=== PATIENT | male | born 1955 | race African-American/Black ===

== ENCOUNTER 2019-04-04 10:58 | Inpatient (IN) | payer MEDICARE, MEDICAID ==
[2019-04-04] VITALS (8 sets, daily range): BP systolic 121–170; BP diastolic 79–103
[~2019-04-04] VITALS: Ht 190.5 cm; Wt 97.1 kg
[2019-04-04] MEDS ORDERED: methylPREDNISolone SOD SUCC PF 125 MG/2 ML VIAL. IV ONE (11:15)
[2019-04-04] MEDS ORDERED: IPRATRPIUM/ALBUTEROL 0.5/2.5MG 3 ML NEBU. NEB ONE (11:15)
[2019-04-04 11:20] LABS: BASO % 0 % (0-3); EOS # 0.4 x10^3/uL (0.0-0.7); EOS % 4 % (0-3); HEMATOCRIT 48.4 % (39.0-53.0); HEMOGLOBIN 16.4 g/dL (13.0-17.5); LYMPH # 0.9 x10^3/uL (1.0-4.8); LYMPH % 10 % (24-48); MEAN CORPUSCULAR HEMOGLOBIN 31 pg (25-35); MEAN CORPUSCULAR HGB CONC 34 g/dL (31-37); MEAN CORPUSCULAR VOLUME 92 fL (79-100); MONO # 1.3 x10^3/uL (0.0-1.1); MONO % 14 % (0-9); NEUT # 6.7 x10^3uL (1.8-7.7); NEUT % 72 % (31-73); PLATELET COUNT 280 x10^3/uL (140-400); RED BLOOD COUNT 5.24 x10^6/uL (4.30-5.70); RED CELL DISTRIBUTION WIDTH 13.7 % (11.5-14.5); WHITE BLOOD COUNT 9.3 x10^3/uL (4.0-11.0)
[2019-04-04 11:22] LABS: BASE EXCESS COOX -1 mmol/L (-3-3); HCO3 COOX 26 mmol/L (21-28); METHEMOGLOBIN 0.1 % (0.0-1.9); OXYHEMOGLOBIN 97.8 %; PCO2 COOX 50 mmHg (35-46); PO2 COOX 218 mmHg (65-108); SAT O2 COOX 98 % (92-99)
--- NOTE | 2019-04-04 11:28 | PHYS DOC ---
Adult General Chief Complaint Chief Complaint: SHORTNESS OF BREATH HPI HPI 63-year-old male presenting by EMS with acute respiratory failure. He was placed on a nonrebreather by EMS and brought in in respiratory distress. This started approximately 24-48 hours ago. improved with nonrebreather. location lungs. duration constant. Past medical history hypertension hyperlipidemia. Denies COPD or heart failure. He denies cardiac disease. Surgical history: The patient denies any recent surgeries Social history denies smoking drinking or IV drug use. Review of systems is negative for abdominal pain nausea vomiting diaphoresis headache neck stiffness. All other review of systems is negative. All other review of systems is negative unless otherwise noted in history of present illness. ED course: 63-year-old male presenting the emergency department today with acute respiratory failure. On arrival he was placed on a nonrebreather and then we used assisted bag valve mask and transitioned him to a BiPAP machine. Patient was given nebulizer here in the emergency department. ABG obtained which showed normal PaO2 with mildly elevated PCO2. PH of 7.33. Bicarbonate 26. Patient's breathing improved with BiPAP. We'll give Solu-Medrol. Chest x-ray ordered along with blood work and a twelve-lead. Twelve-lead obtained and reviewed by myself shows sinus rhythm with a tachy rate. ST segments congruent. Not suggestive of ACS. Patient has improved on reexamination. We will admit the patient to the intensive care unit for acute respiratory failure. I spoke with Dr. Carranza who accepts patient for admission. Basic bridge orders placed. Critical care time spent was 42 minutes exclusive of procedures. Time was spent evaluating the patient, ordering the administration of medications, reevaluating the patient, discussing with the admitting provider and documenting. Review of Systems Review of Systems SEE ABOVE. Current Medications Current Medications Current Medications Medications (Trade) Dose Ordered Sig/Zohreh Start Time Stop Time Status Last Admin Dose Admin Albuterol Sulfate (Ventolin Neb Soln) 10 mg 1X ONCE 04/04/19 12:00 04/04/19 12:01 DC 04/04/19 12:05 10 MG Albuterol/ Ipratropium (Duoneb) 3 ml 1X ONCE 04/04/19 11:15 04/04/19 11:19 DC 04/04/19 11:39 3 ML Methylprednisolone Sodium Succinate (SOLU-Medrol 125MG VIAL) 125 mg 1X ONCE 04/04/19 11:15 04/04/19 11:19 DC 04/04/19 11:20 125 MG Allergies Allergies Allergies Coded Allergies Type Severity Reaction Last Updated Verified No Known Drug Allergies 04/04/19 No Physical Exam Physical Exam SEE ABOVE Constitutional: Patient is in respiratory distress initially, placed on BiPAP. Improved on reexamination. HENT: Normocephalic, atraumatic, bilateral external ears normal, oropharynx m oist, no oral exudates, nose normal. [] Eyes: PERRLA, EOMI, conjunctiva normal, no discharge. [] Neck: Normal range of motion, no tenderness, supple, no stridor. [] Cardiovascular:tachy rate with a regular rhythm, no murmur [] Lungs & Thorax: Bilateral wheezing present. Prolonged expiratory phase Abdomen: Bowel sounds normal, soft, no tenderness, no masses, no pulsatile masses. [] Skin: Warm, dry, no erythema, no rash. [] Back: No tenderness, no CVA tenderness. [] Extremities: No tenderness, no cyanosis, no clubbing, ROM intact, no edema. [] Neurologic: Alert and oriented X 3, normal motor function, normal sensory function, no focal deficits noted. [] Psychologic: Affect normal, judgement normal, mood normal. [] Current Patient Data Vital Signs Vital Signs Date Time Temp Pulse Resp B/P (MAP) Pulse Ox O2 Delivery O2 Flow Rate FiO2 04/04/19 12:32 108 24 137/92 (107) 99 BiPAP/CPAP 15.0 04/04/19 10:58 97.9 97.9 Lab Values Laboratory Tests Test 04/04/19 11:04 04/04/19 11:07 04/04/19 11:50 White Blood Count 9.3 x10^3/uL (4.0-11.0) Red Blood Count 5.24 x10^6/uL (4.30-5.70) Hemoglobin 16.4 g/dL (13.0-17.5) Hematocrit 48.4 % (39.0-53.0) Mean Corpuscular Volume 92 fL (79-100) Mean Corpuscular Hemoglobin 31 pg (25-35) Mean Corpuscular Hemoglobin Concent 34 g/dL (31-37) Red Cell Distribution Width 13.7 % (11.5-14.5) Platelet Count 280 x10^3/uL (140-400) Neutrophils (%) (Auto) 72 % (31-73) Lymphocytes (%) (Auto) 10 % (24-48) L Monocytes (%) (Auto) 14 % (0-9) H Eosinophils (%) (Auto) 4 % (0-3) H Basophils (%) (Auto) 0 % (0-3) Neutrophils # (Auto) 6.7 x10^3uL (1.8-7.7) Lymphocytes # (Auto) 0.9 x10^3/uL (1.0-4.8) L Monocytes # (Auto) 1.3 x10^3/uL (0.0-1.1) H Eosinophils # (Auto) 0.4 x10^3/uL (0.0-0.7) Basophils # (Auto) 0.0 x10^3/uL (0.0-0.2) O2 Saturation 98 % (92-99) Arterial Blood pH 7.34 (7.35-7.45) L Arterial Blood pCO2 at Patient Temp 50 mmHg (35-46) H Arterial Blood pO2 at Patient Temp 218 mmHg (65-108) H Arterial Blood HCO3 26 mmol/L (21-28) Arterial Blood Base Excess -1 mmol/L (-3-3) Oxyhemoglobin 97.8 % Methemoglobin 0.1 % (0.0-1.9) Carbon Monoxide, Quantitative 0.4 % (0.0-1.9) FiO2 50 Sodium Level 133 mmol/L (136-145) L Potassium Level 4.4 mmol/L (3.5-5.1) Chloride Level 92 mmol/L (98-107) L Carbon Dioxide Level 30 mmol/L (21-32) Anion Gap 11 (6-14) Blood Urea Nitrogen 18 mg/dL (8-26) Creatinine 1.5 mg/dL (0.7-1.3) H Estimated GFR (Cockcroft-Gault) 57.6 Glucose Level 103 mg/dL (70-99) H Lactic Acid Level 2.2 mmol/L (0.4-2.0) H Calcium Level 9.8 mg/dL (8.5-10.1) Total Bilirubin 0.8 mg/dL (0.2-1.0) Direct Bilirubin 0.2 mg/dL (0.0-0.2) Aspartate Amino Transferase (AST) 27 U/L (15-37) Alanine Aminotransferase (ALT) 25 U/L (16-63) Alkaline Phosphatase 187 U/L (46-116) H Troponin I Quantitative < 0.017 ng/mL (0.000-0.055) IQ-Hla-O-Type Natriuretic Peptide 135 pg/mL (0-124) H Total Protein 9.1 g/dL (6.4-8.2) H Albumin 4.5 g/dL (3.4-5.0) Lipase 69 U/L (73-393) L Laboratory Tests 04/04/19 11:04 Laboratory Tests 04/04/19 11:50 EKG EKG [] Radiology/Procedures Radiology/Procedures [] Course & Med Decision Making Course & Med Decision Making Pertinent Labs and Imaging studies reviewed. (See chart for details) [] Dragon Disclaimer Dragon Disclaimer This electronic medical record was generated, in whole or in part, using a voice recognition dictation system. Departure Departure Impression: Primary Impression: Respiratory failure Additional Impression: Wheezing Disposition: 09 ADMITTED INPATIENT Admitting Physician: Rhett Bailon Condition: STABLE Problem Qualifiers DEAN BLACKMAN MD April 04, 2019 11:27
--- NOTE | 2019-04-04 11:35 | RAD ---
Portable chest, 04/04/2019: HISTORY: Shortness of breath The heart size and pulmonary vascularity are normal. No pulmonary infiltrate is seen. There is no evidence of pleural fluid. IMPRESSION: No acute cardiopulmonary abnormality is detected. Electronically signed by: Hossein Hassan MD (04/04/2019 11:32 AM) [facility]
[2019-04-04] MEDS ORDERED: ALBUTEROL SULFATE 2.5 MG/3 ML NEBU. CONT NEB ONE (12:00)
--- NOTE | 2019-04-04 12:21 | EKG ---
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
[2019-04-04 12:33] LABS: CALCIUM 9.8 mg/dL (8.5-10.1); CREATININE 1.5 mg/dL (0.7-1.3); GFR 57.6; POTASSIUM 4.4 mmol/L (3.5-5.1)
[2019-04-04 12:37] LABS: ALBUMIN 4.5 g/dL (3.4-5.0); DIRECT BILIRUBIN 0.2 mg/dL (0.0-0.2); TOTAL BILIRUBIN 0.8 mg/dL (0.2-1.0); TOTAL PROTEIN 9.1 g/dL (6.4-8.2)
--- NOTE | 2019-04-04 12:57 | PDOC1 ---
History and Physical Date of Admission Date of Admission DATE: 04/04/19 TIME: 12:57 Identification/Chief Complaint Chief Complaint 63-year-old male presenting by EMS with acute respiratory failure. He was placed on a nonrebreather by EMS and brought in in respiratory distress. This started approximately 24-48 hours ago. improved with nonrebreather. location lungs. duration constant. Past medical history hypertension hyperlipidemia. Denies COPD or heart failure. He denies cardiac disease. Surgical history: The patient denies any recent surgeries Social history denies IV drug use. Review of systems is negative for abdominal pain nausea vomiting diaphoresis headache neck stiffness. All other review of systems is negative. seen in er , 63-year-old male presenting the emergency department today with acute respiratory failure. On arrival he was placed on a nonrebreather and then we used assisted bag valve mask and transitioned him to a BiPAP machine. Patient was given nebulizer here in the emergency department. ABG obtained which showed normal PaO2 with mildly elevated PCO2. PH of 7.33. Bicarbonate 26. Patient's breathing improved with BiPAP. ordered Solu-Medrol. Past Medical History Cardiovascular: Hyperlipidemia Pulmonary: COPD Rheumatologic: No pertinent hx Family History Family History: Alcohol Abuse, Hypertension Social History Smoke: 1 pack per day ALCOHOL: occassional Drugs: None Current Medications Current Medications Current Medications Albuterol/ Ipratropium (Duoneb) 3 ml 1X ONCE NEB Last administered on 04/04/19at 11:39; Start 04/04/19 at 11:15; Stop 04/04/19 at 11:19; Status DC Methylprednisolone Sodium Succinate (SOLU-Medrol 125MG VIAL) 125 mg 1X ONCE IV Last administered on 04/04/19at 11:20; Start 04/04/19 at 11:15; Stop 04/04/19 at 11:19; Status DC Albuterol Sulfate (Ventolin Neb Soln) 10 mg 1X ONCE CONT NEB Last administered on 04/04/19at 12:05; Start 04/04/19 at 12:00; Stop 04/04/19 at 12:01; Status DC Allergies Allergies: Coded Allergies: No Known Drug Allergies (Unverified , 04/04/19) ROS Review of System 14 pt ros otherwise neg General: YES: Fatigue Eyes: No Blurry vision, No Decreased vision, No Double vision, No Dry eyes, No Excessive tearing, No Eye Pain, No Itchy Eyes, No Loss of vision, No Photophobia, No Scotomata, No Uses contacts, No Uses glasses, No Other HEENT: No: Heacaches, Visual Changes, Hearing change, Nasal congestion, Nasal discharge, Oral lesions, Sinus pain, Sore Throat, Epistaxis, Sneezing, Snoring, Tinnitus, Vertigo, Vocal changes, Other Hematological and Lymphatic: No: Bleeding Problems, Blood Clots, Blood Transfusions, Brusing, Night Sweats, Pallor, Swollen Lymph Nodes, Other ENDOCRINE: No: Breast Changes, Galactorrhea, Hair Pattern Changes, Hot Flashes, Malaise/lethargy, Mood Swings, Palpitations, Polydipsia/polyuria, Skin Changes, Temperature Intolerance, Unexpected Weight Changes, Other Breast: No New/Changing Breast Lumps, No Nipple changes, No Nipple discharge, No Other Respiratory: YES: Cough, Shortness of breath, SOB with excertion, Sputum Changes Cardiovascular: No Chest Pain, No Palpitations, No Orthopnea, No Paroxysmal Noc. Dyspnea, No Edema, No Lt Headedness, No Other Gastrointestinal: No Nausea, No Vomiting, No Abdominal Pain, No Diarrhea, No Constipation, No Melena, No Hematochezia, No Other Musculoskeletal: Yes Gait Disturbance, Yes Muscular Weakness Skin: Yes Dry Skin Physical Exam Physical Exam Constitutional: Well developed, well nourished, mod acute distress, non-toxic appearance. [] HENT: Normocephalic, atraumatic, bilateral external ears normal, oropharynx moist, no oral exudates, nose normal. [] Eyes: PERRLA, EOMI, conjunctiva normal, no discharge. [] Neck: Normal range of motion, no tenderness, supple, no stridor. [] Cardiovascular:Heart rate regular rhythm, no murmur [] Lungs & Thorax: Bilateral breath sounds diminished, diffuse exp wheezes [] Abdomen: Bowel sounds normal, soft, no tenderness, no masses, no pulsatile masses. [] Skin: Warm, dry, no erythema, no rash. [] Back: No tenderness, no CVA tenderness. [] Extremities: No tenderness, no cyanosis, no clubbing, ROM intact, no edema. [] Neurologic: Alert and oriented X 3, normal motor function, normal sensory function, no focal deficits noted. [] Psychologic: Affect normal, judgement normal, mood normal. [] General: Cooperative, moderate distress HEENT: Atraumatic, PERRLA, EOMI Heart: RRR Breasts: Not examined Abdomen: Normal bowel sounds, Soft Rectal Exam: not examined, mass PELVIC: Examination not indicated Extremities: No cyanosis Neuro: Normal speech, Cranial nerves 3-12 NL Vitals Vitals Vital Signs Date Time Temp Pulse Resp B/P (MAP) Pulse Ox O2 Delivery O2 Flow Rate FiO2 04/04/19 12:53 99 BiPAP/CPAP 04/04/19 12:32 108 24 137/92 (107) 15.0 04/04/19 10:58 97.9 97.9 Labs Labs Laboratory Tests Test 04/04/19 11:04 04/04/19 11:07 04/04/19 11:50 White Blood Count 9.3 x10^3/uL (4.0-11.0) Red Blood Count 5.24 x10^6/uL (4.30-5.70) Hemoglobin 16.4 g/dL (13.0-17.5) Hematocrit 48.4 % (39.0-53.0) Mean Corpuscular Volume 92 fL (79-100) Mean Corpuscular Hemoglobin 31 pg (25-35) Mean Corpuscular Hemoglobin Concent 34 g/dL (31-37) Red Cell Distribution Width 13.7 % (11.5-14.5) Platelet Count 280 x10^3/uL (140-400) Neutrophils (%) (Auto) 72 % (31-73) Lymphocytes (%) (Auto) 10 % (24-48) Monocytes (%) (Auto) 14 % (0-9) Eosinophils (%) (Auto) 4 % (0-3) Basophils (%) (Auto) 0 % (0-3) Neutrophils # (Auto) 6.7 x10^3uL (1.8-7.7) Lymphocytes # (Auto) 0.9 x10^3/uL (1.0-4.8) Monocytes # (Auto) 1.3 x10^3/uL (0.0-1.1) Eosinophils # (Auto) 0.4 x10^3/uL (0.0-0.7) Basophils # (Auto) 0.0 x10^3/uL (0.0-0.2) O2 Saturation 98 % (92-99) Arterial Blood pH 7.34 (7.35-7.45) Arterial Blood pCO2 at Patient Temp 50 mmHg (35-46) Arterial Blood pO2 at Patient Temp 218 mmHg (65-108) Arterial Blood HCO3 26 mmol/L (21-28) Arterial Blood Base Excess -1 mmol/L (-3-3) Oxyhemoglobin 97.8 % Methemoglobin 0.1 % (0.0-1.9) Carbon Monoxide, Quantitative 0.4 % (0.0-1.9) FiO2 50 Sodium Level 133 mmol/L (136-145) Potassium Level 4.4 mmol/L (3.5-5.1) Chloride Level 92 mmol/L (98-107) Carbon Dioxide Level 30 mmol/L (21-32) Anion Gap 11 (6-14) Blood Urea Nitrogen 18 mg/dL (8-26) Creatinine 1.5 mg/dL (0.7-1.3) Estimated GFR (Cockcroft-Gault) 57.6 Glucose Level 103 mg/dL (70-99) Lactic Acid Level 2.2 mmol/L (0.4-2.0) Calcium Level 9.8 mg/dL (8.5-10.1) Total Bilirubin 0.8 mg/dL (0.2-1.0) Direct Bilirubin 0.2 mg/dL (0.0-0.2) Aspartate Amino Transf (AST/SGOT) 27 U/L (15-37) Alanine Aminotransferase (ALT/SGPT) 25 U/L (16-63) Alkaline Phosphatase 187 U/L (46-116) Troponin I Quantitative < 0.017 ng/mL (0.000-0.055) RK-Kxo-N-Type Natriuretic Peptide 135 pg/mL (0-124) Total Protein 9.1 g/dL (6.4-8.2) Albumin 4.5 g/dL (3.4-5.0) Lipase 69 U/L (73-393) Laboratory Tests Test 04/04/19 11:04 04/04/19 11:07 04/04/19 11:50 White Blood Count 9.3 x10^3/uL (4.0-11.0) Red Blood Count 5.24 x10^6/uL (4.30-5.70) Hemoglobin 16.4 g/dL (13.0-17.5) Hematocrit 48.4 % (39.0-53.0) Mean Corpuscular Volume 92 fL (79-100) Mean Corpuscular Hemoglobin 31 pg (25-35) Mean Corpuscular Hemoglobin Concent 34 g/dL (31-37) Red Cell Distribution Width 13.7 % (11.5-14.5) Platelet Count 280 x10^3/uL (140-400) Neutrophils (%) (Auto) 72 % (31-73) Lymphocytes (%) (Auto) 10 % (24-48) Monocytes (%) (Auto) 14 % (0-9) Eosinophils (%) (Auto) 4 % (0-3) Basophils (%) (Auto) 0 % (0-3) Neutrophils # (Auto) 6.7 x10^3uL (1.8-7.7) Lymphocytes # (Auto) 0.9 x10^3/uL (1.0-4.8) Monocytes # (Auto) 1.3 x10^3/uL (0.0-1.1) Eosinophils # (Auto) 0.4 x10^3/uL (0.0-0.7) Basophils # (Auto) 0.0 x10^3/uL (0.0-0.2) O2 Saturation 98 % (92-99) Arterial Blood pH 7.34 (7.35-7.45) Arterial Blood pCO2 at Patient Temp 50 mmHg (35-46) Arterial Blood pO2 at Patient Temp 218 mmHg (65-108) Arterial Blood HCO3 26 mmol/L (21-28) Arterial Blood Base Excess -1 mmol/L (-3-3) Oxyhemoglobin 97.8 % Methemoglobin 0.1 % (0.0-1.9) Carbon Monoxide, Quantitative 0.4 % (0.0-1.9) FiO2 50 Sodium Level 133 mmol/L (136-145) Potassium Level 4.4 mmol/L (3.5-5.1) Chloride Level 92 mmol/L (98-107) Carbon Dioxide Level 30 mmol/L (21-32) Anion Gap 11 (6-14) Blood Urea Nitrogen 18 mg/dL (8-26) Creatinine 1.5 mg/dL (0.7-1.3) Estimated GFR (Cockcroft-Gault) 57.6 Glucose Level 103 mg/dL (70-99) Lactic Acid Level 2.2 mmol/L (0.4-2.0) Calcium Level 9.8 mg/dL (8.5-10.1) Total Bilirubin 0.8 mg/dL (0.2-1.0) Direct Bilirubin 0.2 mg/dL (0.0-0.2) Aspartate Amino Transf (AST/SGOT) 27 U/L (15-37) Alanine Aminotransferase (ALT/SGPT) 25 U/L (16-63) Alkaline Phosphatase 187 U/L (46-116) Troponin I Quantitative < 0.017 ng/mL (0.000-0.055) XO-Muf-J-Type Natriuretic Peptide 135 pg/mL (0-124) Total Protein 9.1 g/dL (6.4-8.2) Albumin 4.5 g/dL (3.4-5.0) Lipase 69 U/L (73-393) Images Images REASON: soa PROCEDURE: CHEST AP ONLY Portable chest, 04/04/2019: HISTORY: Shortness of breath The heart size and pulmonary vascularity are normal. No pulmonary infiltrate is seen. There is no evidence of pleural fluid. IMPRESSION: No acute cardiopulmonary abnormality is detected. Electronically signed by: Hossein Hassan MD (04/04/2019 11:32 AM) [facility] DICTATED and SIGNED BY: HOSSEIN HASSAN MD DATE: 04/04/19 1132 VTE Prophylaxis Ordered VTE Prophylaxis Devices: Yes VTE Pharmacological Prophylaxi: Yes Assessment/Plan Assessment/Plan impression 1. acute resp failure 2. COPD EXAC, SEVERE 3. Tobacco abuse 4. hypercapnic resp failure plan icu bed o2 support bipap support iv steroid taper dvt prophylaxis gi prophylaxis pulm consult iv doxy 100mg bid 69 min cc time DALJIT RIVERA MD April 04, 2019 12:57
[2019-04-04] MEDS ORDERED: IV NORMAL SALINE 1000ML BAG 1,000 ML IV SCH (13:09)
[2019-04-04] MEDS ORDERED: ONDANSETRON PF 4 MG/2 ML VIAL. IV PRN (13:15)
[2019-04-04] MEDS ORDERED: CONTRAST GIVEN. MC PRN (13:30)
[2019-04-04] MEDS ORDERED: IOHEXOL 350 MG/ML 100 ML VIAL. IV ONE (13:30)
--- NOTE | 2019-04-04 14:30 | RAD ---
CTA OF THE CHEST WITH AND WITHOUT CONTRAST Clinical indications: Respiratory distress. Technique: Noncontrast axial localizer was performed. After IV infusion of 90 cc of Omnipaque 350, helical CT scanning of the chest was performed using the CT pulmonary embolism protocol. A coronal MIP reconstruction was generated. PQRS compliance Statement One or more of the following individualized dose reduction techniques were utilized for this study: 1. Automated exposure control 2. Adjustment of the mA and/or kV according to patient size 3. Use of iterative reconstruction technique Comparison: No previous chest CT available. Findings: The opacification of the pulmonary arteries is not optimal but no central pulmonary embolism is evident. Mediastinal and right hilar lymphadenopathy is evident. The largest lymph node is seen in the subcarinal region measuring 29 mm. Lymph nodes are seen in the precarinal and azygous and right paratracheal and aortopulmonary window regions. A right hilar lymph node is seen and measures 20 mm in size. No focal aneurysmal dilatation of the thoracic aorta is seen and no intimal flap or dissection is evident. The heart size is normal and no pericardial effusion is evident. Small hiatal hernia is evident. There is wall thickening of the esophagus which may be seen with gastroesophageal reflux. Bilateral peribronchial thickening is seen consistent with bronchitis. There is a mucous plug within the right upper lobe bronchus extending to the superior aspect. There is a mucous plug within the left lower lobe bronchus extending into the posterior basal segment. Groundglass lung infiltrates are seen bilaterally in a mosaic-type pattern which may be seen with distal airway inflammation or infection. No other dense lung consolidation or lung mass is seen. No pleural effusion or pneumothorax is evident. No adrenal mass is evident. No lytic process is seen. IMPRESSION: Bilateral bronchitis. Bilateral mucous plugs. Bilateral groundglass lung infiltrates in a mosaic pattern typically seen with distal airway inflammatory or infectious disease. Another consideration is aspiration pneumonitis with debris within the airway. There is a small hiatal hernia with wall thickening of the esophagus which may be secondary to gastroesophageal reflux/esophagitis. No pulmonary emboli. Mediastinal and right hilar lymphadenopathy is evident. This may be reactive in nature but recommend a follow-up chest CT with IV contrast in 3-4 months to ensure stability. Electronically signed by: David Alexander MD (04/04/2019 2:27 PM) [place] [id number]
[2019-04-04] MEDS ORDERED: NAPR-683 PO (15:28)
[2019-04-04] MEDS ORDERED: VORT10TA PO (15:28)
[2019-04-04] MEDS ORDERED: AMIT50TA PO (15:28)
[2019-04-04] MEDS ORDERED: ATOR20TA58 PO (15:30)
[2019-04-04] MEDS ORDERED: UMEC1DIS IH (15:30)
[2019-04-04] MEDS ORDERED: AMLO10TA8 PO (15:30)
--- NOTE | 2019-04-04 17:00 | PDOC ---
PULMONARY PROGRESS NOTES Vitals Vital Signs Date Time Temp Pulse Resp B/P (MAP) Pulse Ox O2 Delivery O2 Flow Rate FiO2 04/04/19 16:00 Nasal Cannula 3.0 04/04/19 16:00 110 22 146/100 (115) 99 04/04/19 15:00 98.3 98.3 Labs Laboratory Tests Test 04/04/19 11:04 04/04/19 11:07 04/04/19 11:50 04/04/19 15:00 White Blood Count 9.3 x10^3/uL (4.0-11.0) Red Blood Count 5.24 x10^6/uL (4.30-5.70) Hemoglobin 16.4 g/dL (13.0-17.5) Hematocrit 48.4 % (39.0-53.0) Mean Corpuscular Volume 92 fL (79-100) Mean Corpuscular Hemoglobin 31 pg (25-35) Mean Corpuscular Hemoglobin Concent 34 g/dL (31-37) Red Cell Distribution Width 13.7 % (11.5-14.5) Platelet Count 280 x10^3/uL (140-400) Neutrophils (%) (Auto) 72 % (31-73) Lymphocytes (%) (Auto) 10 % (24-48) Monocytes (%) (Auto) 14 % (0-9) Eosinophils (%) (Auto) 4 % (0-3) Basophils (%) (Auto) 0 % (0-3) Neutrophils # (Auto) 6.7 x10^3uL (1.8-7.7) Lymphocytes # (Auto) 0.9 x10^3/uL (1.0-4.8) Monocytes # (Auto) 1.3 x10^3/uL (0.0-1.1) Eosinophils # (Auto) 0.4 x10^3/uL (0.0-0.7) Basophils # (Auto) 0.0 x10^3/uL (0.0-0.2) O2 Saturation 98 % (92-99) Arterial Blood pH 7.34 (7.35-7.45) Arterial Blood pCO2 at Patient Temp 50 mmHg (35-46) Arterial Blood pO2 at Patient Temp 218 mmHg (65-108) Arterial Blood HCO3 26 mmol/L (21-28) Arterial Blood Base Excess -1 mmol/L (-3-3) Oxyhemoglobin 97.8 % Methemoglobin 0.1 % (0.0-1.9) Carbon Monoxide, Quantitative 0.4 % (0.0-1.9) FiO2 50 Sodium Level 133 mmol/L (136-145) Potassium Level 4.4 mmol/L (3.5-5.1) Chloride Level 92 mmol/L (98-107) Carbon Dioxide Level 30 mmol/L (21-32) Anion Gap 11 (6-14) Blood Urea Nitrogen 18 mg/dL (8-26) Creatinine 1.5 mg/dL (0.7-1.3) Estimated GFR (Cockcroft-Gault) 57.6 Glucose Level 103 mg/dL (70-99) Lactic Acid Level 2.2 mmol/L (0.4-2.0) 1.5 mmol/L (0.4-2.0) Calcium Level 9.8 mg/dL (8.5-10.1) Total Bilirubin 0.8 mg/dL (0.2-1.0) Direct Bilirubin 0.2 mg/dL (0.0-0.2) Aspartate Amino Transf (AST/SGOT) 27 U/L (15-37) Alanine Aminotransferase (ALT/SGPT) 25 U/L (16-63) Alkaline Phosphatase 187 U/L (46-116) Troponin I Quantitative < 0.017 ng/mL (0.000-0.055) AV-Bap-R-Type Natriuretic Peptide 135 pg/mL (0-124) Total Protein 9.1 g/dL (6.4-8.2) Albumin 4.5 g/dL (3.4-5.0) Lipase 69 U/L (73-393) Laboratory Tests Test 04/04/19 11:04 04/04/19 11:07 04/04/19 11:50 04/04/19 15:00 White Blood Count 9.3 x10^3/uL (4.0-11.0) Red Blood Count 5.24 x10^6/uL (4.30-5.70) Hemoglobin 16.4 g/dL (13.0-17.5) Hematocrit 48.4 % (39.0-53.0) Mean Corpuscular Volume 92 fL (79-100) Mean Corpuscular Hemoglobin 31 pg (25-35) Mean Corpuscular Hemoglobin Concent 34 g/dL (31-37) Red Cell Distribution Width 13.7 % (11.5-14.5) Platelet Count 280 x10^3/uL (140-400) Neutrophils (%) (Auto) 72 % (31-73) Lymphocytes (%) (Auto) 10 % (24-48) Monocytes (%) (Auto) 14 % (0-9) Eosinophils (%) (Auto) 4 % (0-3) Basophils (%) (Auto) 0 % (0-3) Neutrophils # (Auto) 6.7 x10^3uL (1.8-7.7) Lymphocytes # (Auto) 0.9 x10^3/uL (1.0-4.8) Monocytes # (Auto) 1.3 x10^3/uL (0.0-1.1) Eosinophils # (Auto) 0.4 x10^3/uL (0.0-0.7) Basophils # (Auto) 0.0 x10^3/uL (0.0-0.2) O2 Saturation 98 % (92-99) Arterial Blood pH 7.34 (7.35-7.45) Arterial Blood pCO2 at Patient Temp 50 mmHg (35-46) Arterial Blood pO2 at Patient Temp 218 mmHg (65-108) Arterial Blood HCO3 26 mmol/L (21-28) Arterial Blood Base Excess -1 mmol/L (-3-3) Oxyhemoglobin 97.8 % Methemoglobin 0.1 % (0.0-1.9) Carbon Monoxide, Quantitative 0.4 % (0.0-1.9) FiO2 50 Sodium Level 133 mmol/L (136-145) Potassium Level 4.4 mmol/L (3.5-5.1) Chloride Level 92 mmol/L (98-107) Carbon Dioxide Level 30 mmol/L (21-32) Anion Gap 11 (6-14) Blood Urea Nitrogen 18 mg/dL (8-26) Creatinine 1.5 mg/dL (0.7-1.3) Estimated GFR (Cockcroft-Gault) 57.6 Glucose Level 103 mg/dL (70-99) Lactic Acid Level 2.2 mmol/L (0.4-2.0) 1.5 mmol/L (0.4-2.0) Calcium Level 9.8 mg/dL (8.5-10.1) Total Bilirubin 0.8 mg/dL (0.2-1.0) Direct Bilirubin 0.2 mg/dL (0.0-0.2) Aspartate Amino Transf (AST/SGOT) 27 U/L (15-37) Alanine Aminotransferase (ALT/SGPT) 25 U/L (16-63) Alkaline Phosphatase 187 U/L (46-116) Troponin I Quantitative < 0.017 ng/mL (0.000-0.055) QN-Lfd-C-Type Natriuretic Peptide 135 pg/mL (0-124) Total Protein 9.1 g/dL (6.4-8.2) Albumin 4.5 g/dL (3.4-5.0) Lipase 69 U/L (73-393) Medications Active Scripts Medications Dose Route/Sig Max Daily Dose Days Date Category Amlodipine Besylate 10 Mg Tablet 10 Mg PO DAILY 04/04/19 Reported Atorvastatin Calcium 20 Mg Tablet 20 Mg PO HS 04/04/19 Reported Anoro Ellipta 62.5-25 Mcg Inh (Umeclidinium Brm/Vilanterol Tr) 1 Each Disk.w.dev 1 Each IH DAILY 04/04/19 Reported Naprosyn (Naproxen) 500 Mg Tablet 500 Mg PO BID 04/04/19 Reported Amitriptyline Hcl 50 Mg Tablet 50 Mg PO DAILY 04/04/19 Reported Trintellix (Vortioxetine) 10 Mg Tablet 10 Mg PO DAILY 04/04/19 Reported Impression . NOTE DICTATED AECOPD RESP FAILURE KELSEY CARRILLO MD April 04, 2019 17:00
[2019-04-04] MEDS: BUDESONIDE 0.5 MG/2 ML NEBU. NEB SCH (19:53)
[2019-04-04] MEDS: DOXYCYCLINE HYCLATE 100 MG in IV DEXTROSE 5% 100ML 100 ML IV SCH (21:02)
[2019-04-04] MEDS: guaiFENesin DM 600/30MG 1 TAB TAB.ER.12H PO PRN (21:02)
[2019-04-04] MEDS: methylPREDNISolone SOD SUCC PF 125 MG/2 ML VIAL. IV SCH (21:02)
[2019-04-05] VITALS (15 sets, daily range): BP systolic 120–156; BP diastolic 84–97
[2019-04-05 04:50] LABS: BASO % 0 % (0-3); EOS % 0 % (0-3); HEMATOCRIT 45.7 % (39.0-53.0); HEMOGLOBIN 15.1 g/dL (13.0-17.5); LYMPH # 1.3 x10^3/uL (1.0-4.8); LYMPH % 12 % (24-48); MEAN CORPUSCULAR HEMOGLOBIN 31 pg (25-35); MEAN CORPUSCULAR HGB CONC 33 g/dL (31-37); MEAN CORPUSCULAR VOLUME 93 fL (79-100); MONO # 1.2 x10^3/uL (0.0-1.1); MONO % 11 % (0-9); NEUT # 8.6 x10^3uL (1.8-7.7); NEUT % 77 % (31-73); PLATELET COUNT 275 x10^3/uL (140-400); RED CELL DISTRIBUTION WIDTH 13.8 % (11.5-14.5); WHITE BLOOD COUNT 11.1 x10^3/uL (4.0-11.0)
[2019-04-05 05:04] LABS: CALCIUM 9.2 mg/dL (8.5-10.1); CREATININE 1.7 mg/dL (0.7-1.3); GFR 49.8; POTASSIUM 3.8 mmol/L (3.5-5.1)
--- NOTE | 2019-04-05 05:54 | CONS ---
DATE OF CONSULTATION: 04/04/2019 ATTENDING PHYSICIAN: Rhett Carranza MD. REASON FOR CONSULTATION: The patient seen in pulmonary consultation at the request of Dr. Carranza for acute respiratory distress. HISTORY OF PRESENT ILLNESS: The patient is a 63-year-old with a history of coronary artery disease, sees Dr. Lyle, also has had some irregular heartbeat, hyperlipidemia, and underlying COPD, he continues to smoke. Presented by EMS with respiratory distress. He was on nonrebreather initially. Started approximately 24-48 hours ago, cough mostly nonproductive. He was admitted. He is in the Intensive Care Unit. I was asked to see him in consultation. He had a CT chest, which I reviewed. There are some ground-glass opacities. There is no evidence of pulmonary emboli. There is evidence of bilateral bronchitis and mucus plugging. There was mediastinal right hilar adenopathy. PAST MEDICAL HISTORY: Remarkable for irregular heartbeat, he sees Dr. Lyle; hyperlipidemia; coronary artery disease; COPD; tobacco dependence. PAST SURGICAL HISTORY: No recent major surgery. FAMILY HISTORY: Alcohol abuse, hypertension. SOCIAL HISTORY: He drinks occasionally, one pack of cigarettes a day, denies any illicit drug use. CURRENT MEDICATIONS: List was reviewed. REVIEW OF SYSTEMS: As indicated above, otherwise, a 10-point system was reviewed and negative. ALLERGIES: No known drug allergies. PHYSICAL EXAMINATION: GENERAL: The patient was in no respiratory distress. VITAL SIGNS: Stable. O2 saturation was greater than 92%, currently on 3 liters. HEENT: Eyes: The sclerae were nonicteric. NECK: Jugular venous distention was not elevated. No lymphadenopathy. CHEST: Full expansion. LUNGS: Coarse breath sounds, poor expiratory force. The patient coughed upon inspiration. There were bilateral wheezes and rales. CARDIOVASCULAR: Regular rate and rhythm with S1, S2, no S3. ABDOMEN: Soft, nontender, nondistended. EXTREMITIES: No clubbing, cyanosis or edema. NEUROLOGIC: The patient was awake, alert, following commands. A detailed neuro exam was not performed. LABORATORY DATA: Arterial blood gas revealed a pH of 7.34, PaCO2 of 50 and pO2 of 218. White count was normal. Hemoglobin and hematocrit were noted. Electrolytes were noted. Sodium was low. IMPRESSION: 1. Acute hypoxemic respiratory failure. 2. Acute exacerbation of chronic obstructive pulmonary disease. 3. Abnormal CT chest revealing ground glass opacities and reactive lymphadenopathy. 4. Possible Gram-negative pneumonia. 5. Tobacco dependence. 6. History of irregular heartbeat. PLAN: 1. Continue current support p.r.n. BiPAP. 2. IV steroids. 3. DVT and GI prophylaxis. 4. Doxycycline. 5. Steroids. 6. The patient instructed on the importance of discontinuing tobacco use. I do appreciate the privilege in sharing in the patient's care. KELSEY CARRILLO MD DR: MAHESH/jared JOB#: [id number] / [id number]
[2019-04-05] MEDS: methylPREDNISolone SOD SUCC PF 125 MG/2 ML VIAL. IV SCH ×3 (06:36→22:12)
[2019-04-05] MEDS: MORPHINE SULFATE 2 MG/ML VIAL. IV PRN ×2 (06:37→11:20)
[2019-04-05] MEDS: BUDESONIDE 0.5 MG/2 ML NEBU. NEB SCH ×2 (07:33→18:09)
[2019-04-05] MEDS: PANTOPRAZOLE 40 MG TABLET.DR. PO SCH (07:52)
[2019-04-05] MEDS: DOXYCYCLINE HYCLATE 100 MG in IV DEXTROSE 5% 100ML 100 ML IV SCH ×2 (09:01→22:08)
[2019-04-05] MEDS: guaiFENesin DM 600/30MG 1 TAB TAB.ER.12H PO PRN ×2 (09:03→18:58)
[2019-04-05] MEDS: LACTOBACILLUS RHAMNOSUS GG 1 CAPSULE. PO SCH ×2 (09:12→22:12)
--- NOTE | 2019-04-05 09:14 | PDOC ---
PULMONARY PROGRESS NOTES Subjective pt still severe soa and cough can not complete full sentences Vitals Vital Signs Date Time Temp Pulse Resp B/P (MAP) Pulse Ox O2 Delivery O2 Flow Rate FiO2 04/05/19 08:00 Nasal Cannula 3.0 04/05/19 08:00 98.2 98 20 156/95 (115) 98 98.2 ROS: No Nausea, No Abdominal Pain General: Alert Lungs: Wheezing, Crackles Cardiovascular: S1, S2 Abdomen: Soft Neuro Exam: Alert Extremities: No Edema Skin: Warm Labs Laboratory Tests Test 04/04/19 11:04 04/04/19 11:07 04/04/19 11:50 04/04/19 15:00 White Blood Count 9.3 x10^3/uL (4.0-11.0) Red Blood Count 5.24 x10^6/uL (4.30-5.70) Hemoglobin 16.4 g/dL (13.0-17.5) Hematocrit 48.4 % (39.0-53.0) Mean Corpuscular Volume 92 fL (79-100) Mean Corpuscular Hemoglobin 31 pg (25-35) Mean Corpuscular Hemoglobin Concent 34 g/dL (31-37) Red Cell Distribution Width 13.7 % (11.5-14.5) Platelet Count 280 x10^3/uL (140-400) Neutrophils (%) (Auto) 72 % (31-73) Lymphocytes (%) (Auto) 10 % (24-48) Monocytes (%) (Auto) 14 % (0-9) Eosinophils (%) (Auto) 4 % (0-3) Basophils (%) (Auto) 0 % (0-3) Neutrophils # (Auto) 6.7 x10^3uL (1.8-7.7) Lymphocytes # (Auto) 0.9 x10^3/uL (1.0-4.8) Monocytes # (Auto) 1.3 x10^3/uL (0.0-1.1) Eosinophils # (Auto) 0.4 x10^3/uL (0.0-0.7) Basophils # (Auto) 0.0 x10^3/uL (0.0-0.2) O2 Saturation 98 % (92-99) Arterial Blood pH 7.34 (7.35-7.45) Arterial Blood pCO2 at Patient Temp 50 mmHg (35-46) Arterial Blood pO2 at Patient Temp 218 mmHg (65-108) Arterial Blood HCO3 26 mmol/L (21-28) Arterial Blood Base Excess -1 mmol/L (-3-3) Oxyhemoglobin 97.8 % Methemoglobin 0.1 % (0.0-1.9) Carbon Monoxide, Quantitative 0.4 % (0.0-1.9) FiO2 50 Sodium Level 133 mmol/L (136-145) Potassium Level 4.4 mmol/L (3.5-5.1) Chloride Level 92 mmol/L (98-107) Carbon Dioxide Level 30 mmol/L (21-32) Anion Gap 11 (6-14) Blood Urea Nitrogen 18 mg/dL (8-26) Creatinine 1.5 mg/dL (0.7-1.3) Estimated GFR (Cockcroft-Gault) 57.6 Glucose Level 103 mg/dL (70-99) Lactic Acid Level 2.2 mmol/L (0.4-2.0) 1.5 mmol/L (0.4-2.0) Calcium Level 9.8 mg/dL (8.5-10.1) Total Bilirubin 0.8 mg/dL (0.2-1.0) Direct Bilirubin 0.2 mg/dL (0.0-0.2) Aspartate Amino Transf (AST/SGOT) 27 U/L (15-37) Alanine Aminotransferase (ALT/SGPT) 25 U/L (16-63) Alkaline Phosphatase 187 U/L (46-116) Troponin I Quantitative < 0.017 ng/mL (0.000-0.055) XC-Gfk-S-Type Natriuretic Peptide 135 pg/mL (0-124) Total Protein 9.1 g/dL (6.4-8.2) Albumin 4.5 g/dL (3.4-5.0) Lipase 69 U/L (73-393) Test 04/05/19 04:30 White Blood Count 11.1 x10^3/uL (4.0-11.0) Red Blood Count 4.90 x10^6/uL (4.30-5.70) Hemoglobin 15.1 g/dL (13.0-17.5) Hematocrit 45.7 % (39.0-53.0) Mean Corpuscular Volume 93 fL (79-100) Mean Corpuscular Hemoglobin 31 pg (25-35) Mean Corpuscular Hemoglobin Concent 33 g/dL (31-37) Red Cell Distribution Width 13.8 % (11.5-14.5) Platelet Count 275 x10^3/uL (140-400) Neutrophils (%) (Auto) 77 % (31-73) Lymphocytes (%) (Auto) 12 % (24-48) Monocytes (%) (Auto) 11 % (0-9) Eosinophils (%) (Auto) 0 % (0-3) Basophils (%) (Auto) 0 % (0-3) Neutrophils # (Auto) 8.6 x10^3uL (1.8-7.7) Lymphocytes # (Auto) 1.3 x10^3/uL (1.0-4.8) Monocytes # (Auto) 1.2 x10^3/uL (0.0-1.1) Eosinophils # (Auto) 0.0 x10^3/uL (0.0-0.7) Basophils # (Auto) 0.0 x10^3/uL (0.0-0.2) Sodium Level 134 mmol/L (136-145) Potassium Level 3.8 mmol/L (3.5-5.1) Chloride Level 95 mmol/L (98-107) Carbon Dioxide Level 26 mmol/L (21-32) Anion Gap 13 (6-14) Blood Urea Nitrogen 30 mg/dL (8-26) Creatinine 1.7 mg/dL (0.7-1.3) Estimated GFR (Cockcroft-Gault) 49.8 Glucose Level 127 mg/dL (70-99) Calcium Level 9.2 mg/dL (8.5-10.1) Laboratory Tests Test 04/04/19 11:04 04/04/19 11:07 04/04/19 11:50 04/04/19 15:00 White Blood Count 9.3 x10^3/uL (4.0-11.0) Red Blood Count 5.24 x10^6/uL (4.30-5.70) Hemoglobin 16.4 g/dL (13.0-17.5) Hematocrit 48.4 % (39.0-53.0) Mean Corpuscular Volume 92 fL (79-100) Mean Corpuscular Hemoglobin 31 pg (25-35) Mean Corpuscular Hemoglobin Concent 34 g/dL (31-37) Red Cell Distribution Width 13.7 % (11.5-14.5) Platelet Count 280 x10^3/uL (140-400) Neutrophils (%) (Auto) 72 % (31-73) Lymphocytes (%) (Auto) 10 % (24-48) Monocytes (%) (Auto) 14 % (0-9) Eosinophils (%) (Auto) 4 % (0-3) Basophils (%) (Auto) 0 % (0-3) Neutrophils # (Auto) 6.7 x10^3uL (1.8-7.7) Lymphocytes # (Auto) 0.9 x10^3/uL (1.0-4.8) Monocytes # (Auto) 1.3 x10^3/uL (0.0-1.1) Eosinophils # (Auto) 0.4 x10^3/uL (0.0-0.7) Basophils # (Auto) 0.0 x10^3/uL (0.0-0.2) O2 Saturation 98 % (92-99) Arterial Blood pH 7.34 (7.35-7.45) Arterial Blood pCO2 at Patient Temp 50 mmHg (35-46) Arterial Blood pO2 at Patient Temp 218 mmHg (65-108) Arterial Blood HCO3 26 mmol/L (21-28) Arterial Blood Base Excess -1 mmol/L (-3-3) Oxyhemoglobin 97.8 % Methemoglobin 0.1 % (0.0-1.9) Carbon Monoxide, Quantitative 0.4 % (0.0-1.9) FiO2 50 Sodium Level 133 mmol/L (136-145) Potassium Level 4.4 mmol/L (3.5-5.1) Chloride Level 92 mmol/L (98-107) Carbon Dioxide Level 30 mmol/L (21-32) Anion Gap 11 (6-14) Blood Urea Nitrogen 18 mg/dL (8-26) Creatinine 1.5 mg/dL (0.7-1.3) Estimated GFR (Cockcroft-Gault) 57.6 Glucose Level 103 mg/dL (70-99) Lactic Acid Level 2.2 mmol/L (0.4-2.0) 1.5 mmol/L (0.4-2.0) Calcium Level 9.8 mg/dL (8.5-10.1) Total Bilirubin 0.8 mg/dL (0.2-1.0) Direct Bilirubin 0.2 mg/dL (0.0-0.2) Aspartate Amino Transf (AST/SGOT) 27 U/L (15-37) Alanine Aminotransferase (ALT/SGPT) 25 U/L (16-63) Alkaline Phosphatase 187 U/L (46-116) Troponin I Quantitative < 0.017 ng/mL (0.000-0.055) XZ-Usr-O-Type Natriuretic Peptide 135 pg/mL (0-124) Total Protein 9.1 g/dL (6.4-8.2) Albumin 4.5 g/dL (3.4-5.0) Lipase 69 U/L (73-393) Test 04/05/19 04:30 White Blood Count 11.1 x10^3/uL (4.0-11.0) Red Blood Count 4.90 x10^6/uL (4.30-5.70) Hemoglobin 15.1 g/dL (13.0-17.5) Hematocrit 45.7 % (39.0-53.0) Mean Corpuscular Volume 93 fL (79-100) Mean Corpuscular Hemoglobin 31 pg (25-35) Mean Corpuscular Hemoglobin Concent 33 g/dL (31-37) Red Cell Distribution Width 13.8 % (11.5-14.5) Platelet Count 275 x10^3/uL (140-400) Neutrophils (%) (Auto) 77 % (31-73) Lymphocytes (%) (Auto) 12 % (24-48) Monocytes (%) (Auto) 11 % (0-9) Eosinophils (%) (Auto) 0 % (0-3) Basophils (%) (Auto) 0 % (0-3) Neutrophils # (Auto) 8.6 x10^3uL (1.8-7.7) Lymphocytes # (Auto) 1.3 x10^3/uL (1.0-4.8) Monocytes # (Auto) 1.2 x10^3/uL (0.0-1.1) Eosinophils # (Auto) 0.0 x10^3/uL (0.0-0.7) Basophils # (Auto) 0.0 x10^3/uL (0.0-0.2) Sodium Level 134 mmol/L (136-145) Potassium Level 3.8 mmol/L (3.5-5.1) Chloride Level 95 mmol/L (98-107) Carbon Dioxide Level 26 mmol/L (21-32) Anion Gap 13 (6-14) Blood Urea Nitrogen 30 mg/dL (8-26) Creatinine 1.7 mg/dL (0.7-1.3) Estimated GFR (Cockcroft-Gault) 49.8 Glucose Level 127 mg/dL (70-99) Calcium Level 9.2 mg/dL (8.5-10.1) Medications Active Scripts Medications Dose Route/Sig Max Daily Dose Days Date Category Amlodipine Besylate 10 Mg Tablet 10 Mg PO DAILY 04/04/19 Reported Atorvastatin Calcium 20 Mg Tablet 20 Mg PO HS 04/04/19 Reported Anoro Ellipta 62.5-25 Mcg Inh (Umeclidinium Brm/Vilanterol Tr) 1 Each Disk.w.dev 1 Each IH DAILY 04/04/19 Reported Naprosyn (Naproxen) 500 Mg Tablet 500 Mg PO BID 04/04/19 Reported Amitriptyline Hcl 50 Mg Tablet 50 Mg PO DAILY 04/04/19 Reported Trintellix (Vortioxetine) 10 Mg Tablet 10 Mg PO DAILY 04/04/19 Reported Impression . IMPRESSION: 1. Acute hypoxemic respiratory failure. 2. Acute exacerbation of chronic obstructive pulmonary disease. 3. Abnormal CT chest revealing ground glass opacities and reactive lymphadenopathy. 4. Possible Gram-negative pneumonia. 5. Tobacco dependence. 6. History of irregular heartbeat. 7. AECOPD Plan . SEE ORDERS TRANSFER FROM ICU ADD TESTALYAON NEBS PRN BIPAP DOXY D/C SMOKING 6 MW PRIOR TO D/C KELSEY CARRILLO MD April 05, 2019 09:14
[2019-04-05] MEDS ORDERED: LOSA1TAB22 PO (10:11)
[2019-04-05] MEDS ORDERED: CARV25TA2 PO (10:17)
[2019-04-05] MEDS ORDERED: ALBUTEROL SULFATE 2.5 MG/3 ML NEBU. NEB PRN (11:45)
[2019-04-05] MEDS ORDERED: ALBUTEROL SULFATE 2.5 MG/3 ML NEBU. NEB SCH (12:00)
[2019-04-05] MEDS ORDERED: BUDESONIDE 0.5 MG/2 ML NEBU. NEB SCH (12:00)
[2019-04-05] MEDS: LOSARTAN POTASSIUM 50 MG TABLET. PO SCH (12:08)
[2019-04-05] MEDS: hydroCHLOROthiazide 25 MG TABLET PO SCH (12:10)
[2019-04-05] MEDS: AMITRIPTYLINE HCL 25 MG TABLET. PO SCH ×2 (12:10→22:12)
[2019-04-05] MEDS: NAPROXEN 500 MG TABLET PO SCH ×2 (12:10→22:12)
[2019-04-05] MEDS: amLODIPine BESYLATE 10 MG TABLET PO SCH (12:11)
--- NOTE | 2019-04-05 12:29 | PDOC ---
[employer] PROGRESS NOTE Chief Complaint Chief Complaint Acute hypoxemic respiratory failure Acute exacerbation of chronic obstructive pulmonary disease Abnormal CT chest revealing ground glass opacities and reactive lymphadenopathy Possible Gram-negative pneumonia Tobacco abuse disorder History of Present Illness History of Present Illness Patient seen and examined in ICU Patient pleasant in NAD Discussed with nurse Vitals Vitals Vital Signs Date Time Temp Pulse Resp B/P (MAP) Pulse Ox O2 Delivery O2 Flow Rate FiO2 04/05/19 12:11 105 150/94 04/05/19 11:50 20 93 Nasal Cannula 2.0 04/05/19 08:00 98.2 98.2 Physical Exam General: Cooperative, moderate distress Lungs: Wheezing, Crackles Abdomen: Normal bowel sounds, Soft Extremities: No cyanosis Skin: No rashes, No significant lesion Labs LABS Laboratory Tests Test 04/04/19 15:00 04/05/19 04:30 Lactic Acid Level 1.5 mmol/L (0.4-2.0) White Blood Count 11.1 x10^3/uL (4.0-11.0) Red Blood Count 4.90 x10^6/uL (4.30-5.70) Hemoglobin 15.1 g/dL (13.0-17.5) Hematocrit 45.7 % (39.0-53.0) Mean Corpuscular Volume 93 fL (79-100) Mean Corpuscular Hemoglobin 31 pg (25-35) Mean Corpuscular Hemoglobin Concent 33 g/dL (31-37) Red Cell Distribution Width 13.8 % (11.5-14.5) Platelet Count 275 x10^3/uL (140-400) Neutrophils (%) (Auto) 77 % (31-73) Lymphocytes (%) (Auto) 12 % (24-48) Monocytes (%) (Auto) 11 % (0-9) Eosinophils (%) (Auto) 0 % (0-3) Basophils (%) (Auto) 0 % (0-3) Neutrophils # (Auto) 8.6 x10^3uL (1.8-7.7) Lymphocytes # (Auto) 1.3 x10^3/uL (1.0-4.8) Monocytes # (Auto) 1.2 x10^3/uL (0.0-1.1) Eosinophils # (Auto) 0.0 x10^3/uL (0.0-0.7) Basophils # (Auto) 0.0 x10^3/uL (0.0-0.2) Sodium Level 134 mmol/L (136-145) Potassium Level 3.8 mmol/L (3.5-5.1) Chloride Level 95 mmol/L (98-107) Carbon Dioxide Level 26 mmol/L (21-32) Anion Gap 13 (6-14) Blood Urea Nitrogen 30 mg/dL (8-26) Creatinine 1.7 mg/dL (0.7-1.3) Estimated GFR (Cockcroft-Gault) 49.8 Glucose Level 127 mg/dL (70-99) Calcium Level 9.2 mg/dL (8.5-10.1) Review of Systems Review of Systems Patient denies WO[place] Patient denies abdominal pain Assessment and Plan Assessmemt and Plan Problems Medical Problems: (1) Respiratory failure Status: Acute (2) Wheezing Status: Acute Assessment: Acute hypoxemic respiratory failure Acute exacerbation of chronic obstructive pulmonary disease Abnormal CT chest revealing ground glass opacities and reactive lymphadenopathy Possible Gram-negative pneumonia Tobacco abuse disorder Plan: ICU monitoring Antibiotics- Doxycycline IV steroids Duonebs Labs BIPAP prn DVT ppx PPI Pulmonology consulted- appreciate recommendations Comment Review of Relevant I have reviewed the following items mine (where applicable) has been applied. Labs Laboratory Tests Test 04/04/19 11:04 04/04/19 11:07 04/04/19 11:50 04/04/19 15:00 White Blood Count 9.3 x10^3/uL (4.0-11.0) Red Blood Count 5.24 x10^6/uL (4.30-5.70) Hemoglobin 16.4 g/dL (13.0-17.5) Hematocrit 48.4 % (39.0-53.0) Mean Corpuscular Volume 92 fL (79-100) Mean Corpuscular Hemoglobin 31 pg (25-35) Mean Corpuscular Hemoglobin Concent 34 g/dL (31-37) Red Cell Distribution Width 13.7 % (11.5-14.5) Platelet Count 280 x10^3/uL (140-400) Neutrophils (%) (Auto) 72 % (31-73) Lymphocytes (%) (Auto) 10 % (24-48) Monocytes (%) (Auto) 14 % (0-9) Eosinophils (%) (Auto) 4 % (0-3) Basophils (%) (Auto) 0 % (0-3) Neutrophils # (Auto) 6.7 x10^3uL (1.8-7.7) Lymphocytes # (Auto) 0.9 x10^3/uL (1.0-4.8) Monocytes # (Auto) 1.3 x10^3/uL (0.0-1.1) Eosinophils # (Auto) 0.4 x10^3/uL (0.0-0.7) Basophils # (Auto) 0.0 x10^3/uL (0.0-0.2) O2 Saturation 98 % (92-99) Arterial Blood pH 7.34 (7.35-7.45) Arterial Blood pCO2 at Patient Temp 50 mmHg (35-46) Arterial Blood pO2 at Patient Temp 218 mmHg (65-108) Arterial Blood HCO3 26 mmol/L (21-28) Arterial Blood Base Excess -1 mmol/L (-3-3) Oxyhemoglobin 97.8 % Methemoglobin 0.1 % (0.0-1.9) Carbon Monoxide, Quantitative 0.4 % (0.0-1.9) FiO2 50 Sodium Level 133 mmol/L (136-145) Potassium Level 4.4 mmol/L (3.5-5.1) Chloride Level 92 mmol/L (98-107) Carbon Dioxide Level 30 mmol/L (21-32) Anion Gap 11 (6-14) Blood Urea Nitrogen 18 mg/dL (8-26) Creatinine 1.5 mg/dL (0.7-1.3) Estimated GFR (Cockcroft-Gault) 57.6 Glucose Level 103 mg/dL (70-99) Lactic Acid Level 2.2 mmol/L (0.4-2.0) 1.5 mmol/L (0.4-2.0) Calcium Level 9.8 mg/dL (8.5-10.1) Total Bilirubin 0.8 mg/dL (0.2-1.0) Direct Bilirubin 0.2 mg/dL (0.0-0.2) Aspartate Amino Transf (AST/SGOT) 27 U/L (15-37) Alanine Aminotransferase (ALT/SGPT) 25 U/L (16-63) Alkaline Phosphatase 187 U/L (46-116) Troponin I Quantitative < 0.017 ng/mL (0.000-0.055) CU-Kyq-P-Type Natriuretic Peptide 135 pg/mL (0-124) Total Protein 9.1 g/dL (6.4-8.2) Albumin 4.5 g/dL (3.4-5.0) Lipase 69 U/L (73-393) Test 04/05/19 04:30 White Blood Count 11.1 x10^3/uL (4.0-11.0) Red Blood Count 4.90 x10^6/uL (4.30-5.70) Hemoglobin 15.1 g/dL (13.0-17.5) Hematocrit 45.7 % (39.0-53.0) Mean Corpuscular Volume 93 fL (79-100) Mean Corpuscular Hemoglobin 31 pg (25-35) Mean Corpuscular Hemoglobin Concent 33 g/dL (31-37) Red Cell Distribution Width 13.8 % (11.5-14.5) Platelet Count 275 x10^3/uL (140-400) Neutrophils (%) (Auto) 77 % (31-73) Lymphocytes (%) (Auto) 12 % (24-48) Monocytes (%) (Auto) 11 % (0-9) Eosinophils (%) (Auto) 0 % (0-3) Basophils (%) (Auto) 0 % (0-3) Neutrophils # (Auto) 8.6 x10^3uL (1.8-7.7) Lymphocytes # (Auto) 1.3 x10^3/uL (1.0-4.8) Monocytes # (Auto) 1.2 x10^3/uL (0.0-1.1) Eosinophils # (Auto) 0.0 x10^3/uL (0.0-0.7) Basophils # (Auto) 0.0 x10^3/uL (0.0-0.2) Sodium Level 134 mmol/L (136-145) Potassium Level 3.8 mmol/L (3.5-5.1) Chloride Level 95 mmol/L (98-107) Carbon Dioxide Level 26 mmol/L (21-32) Anion Gap 13 (6-14) Blood Urea Nitrogen 30 mg/dL (8-26) Creatinine 1.7 mg/dL (0.7-1.3) Estimated GFR (Cockcroft-Gault) 49.8 Glucose Level 127 mg/dL (70-99) Calcium Level 9.2 mg/dL (8.5-10.1) Laboratory Tests Test 04/04/19 15:00 04/05/19 04:30 Lactic Acid Level 1.5 mmol/L (0.4-2.0) White Blood Count 11.1 x10^3/uL (4.0-11.0) Red Blood Count 4.90 x10^6/uL (4.30-5.70) Hemoglobin 15.1 g/dL (13.0-17.5) Hematocrit 45.7 % (39.0-53.0) Mean Corpuscular Volume 93 fL (79-100) Mean Corpuscular Hemoglobin 31 pg (25-35) Mean Corpuscular Hemoglobin Concent 33 g/dL (31-37) Red Cell Distribution Width 13.8 % (11.5-14.5) Platelet Count 275 x10^3/uL (140-400) Neutrophils (%) (Auto) 77 % (31-73) Lymphocytes (%) (Auto) 12 % (24-48) Monocytes (%) (Auto) 11 % (0-9) Eosinophils (%) (Auto) 0 % (0-3) Basophils (%) (Auto) 0 % (0-3) Neutrophils # (Auto) 8.6 x10^3uL (1.8-7.7) Lymphocytes # (Auto) 1.3 x10^3/uL (1.0-4.8) Monocytes # (Auto) 1.2 x10^3/uL (0.0-1.1) Eosinophils # (Auto) 0.0 x10^3/uL (0.0-0.7) Basophils # (Auto) 0.0 x10^3/uL (0.0-0.2) Sodium Level 134 mmol/L (136-145) Potassium Level 3.8 mmol/L (3.5-5.1) Chloride Level 95 mmol/L (98-107) Carbon Dioxide Level 26 mmol/L (21-32) Anion Gap 13 (6-14) Blood Urea Nitrogen 30 mg/dL (8-26) Creatinine 1.7 mg/dL (0.7-1.3) Estimated GFR (Cockcroft-Gault) 49.8 Glucose Level 127 mg/dL (70-99) Calcium Level 9.2 mg/dL (8.5-10.1) Medications Current Medications Albuterol/ Ipratropium (Duoneb) 3 ml 1X ONCE NEB Last administered on 04/04/19at 11:39; Start 04/04/19 at 11:15; Stop 04/04/19 at 11:19; Status DC Methylprednisolone Sodium Succinate (SOLU-Medrol 125MG VIAL) 125 mg 1X ONCE IV Last administered on 04/04/19at 11:20; Start 04/04/19 at 11:15; Stop 04/04/19 at 11:19; Status DC Albuterol Sulfate (Ventolin Neb Soln) 10 mg 1X ONCE CONT NEB Last administered on 04/04/19at 12:05; Start 04/04/19 at 12:00; Stop 04/04/19 at 12:01; Status DC Ondansetron HCl (Zofran) 4 mg PRN Q8HRS PRN IV NAUSEA/VOMITING; Start 04/04/19 at 13:15; Stop 04/05/19 at 13:14 Morphine Sulfate (Morphine Sulfate) 2 mg PRN Q2HR PRN IV PAIN Last administered on 04/05/19at 11:20; Start 04/04/19 at 13:15; Stop 04/05/19 at 13:14 Sodium Chloride 1,000 ml @ 100 mls/hr Q10H IV Last administered on 04/04/19at 13:09; Start 04/04/19 at 13:09; Stop 04/04/19 at 19:08; Status DC Iohexol (Omnipaque 350 Mg/ml) 90 ml 1X ONCE IV Last administered on 04/04/19at 13:59; Start 04/04/19 at 13:30; Stop 04/04/19 at 13:31; Status DC Info (CONTRAST GIVEN -- Rx MONITORING) 1 each PRN DAILY PRN MC SEE COMMENTS; Start 04/04/19 at 13:30; Stop 04/06/19 at 13:29 Methylprednisolone Sodium Succinate (SOLU-Medrol 125MG VIAL) 125 mg Q8HRS IV Last administered on 04/05/19at 06:36; Start 04/04/19 at 22:00 Doxycycline Hyclate 100 mg/ Dextrose 100 ml @ 50 mls/hr Q12HR IV Last administered on 04/05/19 09:01; Start 04/04/19 at 21:00 Pantoprazole Sodium (Protonix) 40 mg DAILYAC PO Last administered on 04/05/19at 07:52; Start 04/05/19 at 07:30 Budesonide (Pulmicort) 0.5 mg RTBID NEB Last administered on 04/05/19at 07:33; Start 04/04/19 at 20:00 Guaifenesin (MUCINEX ER with DM) 1 tab PRN BID PRN PO COUGH Last administered on 04/05/19 09:03; Start 04/04/19 at 20:45 Lactobacillus Rhamnosus (Culturelle) 1 cap BID PO Last administered on 04/05/19at 09:12; Start 04/05/19 at 09:00 Amitriptyline HCl (Elavil) 50 mg BID PO Last administered on 04/05/19at 12:10; Start 04/05/19 at 12:00 Amlodipine Besylate (Norvasc) 10 mg DAILY PO Last administered on 04/05/19at 12:11; Start 04/05/19 at 12:00 Atorvastatin Calcium (Lipitor) 20 mg HS PO ; Start 04/05/19 at 21:00 Carvedilol (Coreg) 12.5 mg BIDWMEALS PO ; Start 04/05/19 at 17:00 Losartan Potassium (Cozaar) 100 mg DAILY PO Last administered on 04/05/19at 12:08; Start 04/05/19 at 12:00 Naproxen (Naprosyn) 500 mg BID PO Last administered on 04/05/19at 12:10; Start 04/05/19 at 12:00 Budesonide (Pulmicort) 0.5 mg RTBID NEB ; Start 04/05/19 at 12:00; Status UNV Non-Formulary Medication (Vortioxetine Hydrobromide (Trintellix)) 10 mg DAILY PO ; Start 04/06/19 at 09:00; Status UNV Albuterol Sulfate (Ventolin Neb Soln) 2.5 mg RTQID NEB Last administered on 04/05/19at 11:40; Start 04/05/19 at 12:00; Stop 04/05/19 at 12:00; Status DC Hydrochlorothiazide (Hydrodiuril) 25 mg DAILY PO Last administered on 04/05/19at 12:10; Start 04/05/19 at 12:00 Albuterol Sulfate (Ventolin Neb Soln) 2.5 mg PRN Q2HR PRN NEB [id number]; Start 04/05/19 at 11:45 Albuterol/ Ipratropium (Duoneb) 3 ml RTQID NEB ; Start 04/05/19 at 12:00 Benzonatate (Tessalon Perle) 100 mg [id number] PO ; Start 04/05/19 at 14:00 Enoxaparin Sodium (Lovenox 40mg Syringe) 40 mg Q24H SQ ; Start 04/05/19 at 16:00 Active Scripts Active Reported Carvedilol 25 Mg Tablet 12.5 Mg PO BIDWMEALS Losartan-Hctz 100-25 Mg Tab (Losartan/Hydrochlorothiazide) 1 Each Tablet 1 Tab PO DAILY Amlodipine Besylate 10 Mg Tablet 10 Mg PO DAILY Atorvastatin Calcium 20 Mg Tablet 20 Mg PO HS Anoro Ellipta 62.5-25 Mcg Inh (Umeclidinium Brm/Vilanterol Tr) 1 Each Disk.w.dev 1 Each IH DAILY Naprosyn (Naproxen) 500 Mg Tablet 500 Mg PO BID Amitriptyline Hcl 50 Mg Tablet 50 Mg PO BID Trintellix (Vortioxetine) 10 Mg Tablet 10 Mg PO DAILY Vitals/I & O Vital Sign - Last 24 Hours 04/04/19 04/04/19 04/04/19 04/04/19 12:32 12:53 13:02 13:02 Pulse 108 104 102 Resp 24 22 20 B/P (MAP) 137/92 (107) 135/94 (108) 135/94 (108) Pulse Ox 99 99 98 98 O2 Delivery BiPAP/CPAP BiPAP/CPAP Nasal Cannula BiPAP/CPAP O2 Flow Rate 15.0 3.0 04/04/19 04/04/19 04/04/19 04/04/19 14:13 15:00 16:00 16:00 Temp 98.3 98.3 Pulse 96 102 110 Resp 22 22 B/P (MAP) 138/80 (99) 121/94 (103) 146/100 (115) Pulse Ox 100 99 99 O2 Delivery Nasal Cannula Nasal Cannula Nasal Cannula Nasal Cannula O2 Flow Rate 3.0 3.0 3.0 3.0 04/04/19 04/04/19 04/04/19 04/04/19 17:00 17:02 19:00 19:50 Pulse 104 102 Resp B/P (MAP) 156/103 (120) 138/97 (111) Pulse Ox 99 100 99 96 O2 Delivery Nasal Cannula Nasal Cannula Nasal Cannula Nasal Cannula O2 Flow Rate 3.0 2.0 3.0 2.0 04/04/19 04/04/19 04/04/19 04/04/19 20:00 20:00 21:00 22:00 Temp 97.9 97.9 Pulse 100 115 114 Resp B/P (MAP) 155/95 (115) 170/100 (123) 153/90 (111) Pulse Ox 99 99 97 O2 Delivery Nasal Cannula Nasal Cannula Nasal Cannula Nasal Cannula O2 Flow Rate 3.0 3.0 3.0 3.0 04/04/19 04/05/19 04/05/19 04/05/19 23:00 00:01 00:01 01:05 Temp 98.5 98.5 Pulse 114 110 108 Resp B/P (MAP) 134/79 (97) 153/96 (115) 153/96 (115) Pulse Ox 97 94 93 O2 Delivery Nasal Cannula Nasal Cannula Nasal Cannula O2 Flow Rate 3.0 3.0 3.0 04/05/19 04/05/19 04/05/19 04/05/19 02:11 03:03 04:00 04:00 Pulse 124 108 103 Resp B/P (MAP) 152/96 (114) 147/97 (114) 151/90 (110) Pulse Ox 98 93 97 O2 Delivery Nasal Cannula Nasal Cannula Nasal Cannula O2 Flow Rate 3.0 3.0 3.0 04/05/19 04/05/19 04/05/19 04/05/19 06:05 06:08 06:37 07:00 Temp 97.2 97.2 Pulse 115 93 Resp B/P (MAP) 128/95 (106) 150/91 (110) Pulse Ox 95 94 O2 Delivery Nasal Cannula Nasal Cannula Nasal Cannula O2 Flow Rate 3.0 3.0 04/05/19 04/05/19 04/05/1919 07:34 08:00 08:00 09:00 Temp 98.2 98.2 Pulse 98 111 Resp 20 20 B/P (MAP) 156/95 (115) 132/94 (107) Pulse Ox 93 98 96 O2 Delivery Nasal Cannula Nasal Cannula Nasal Cannula Nasal Cannula O2 Flow Rate 2.0 3.0 3.0 3.0 04/05/19 04/05/19 04/05/19 04/05/19 10:00 11:00 11:20 11:41 Pulse 106 105 Resp 20 20 20 B/P (MAP) 149/94 (112) 150/94 (112) Pulse Ox 95 95 95 93 O2 Delivery Nasal Cannula Nasal Cannula Nasal Cannula Nasal Cannula O2 Flow Rate 3.0 3.0 3.0 2.0 04/05/19 04/05/19 04/05/19 11:50 12:08 12:11 Pulse 105 105 Resp 20 B/P (MAP) 150/94 150/94 Pulse Ox 93 O2 Delivery Nasal Cannula O2 Flow Rate 2.0 Intake and Output 0 04/04/19 04/04/19 04/05/19 14:59 22:59 06:59 Intake Total 305 ml 400 ml Output Total 400 ml 550 ml Balance -95 ml -150 ml NING DIAZ K III DO April 05, 2019 12:29
[2019-04-05] MEDS: BENZONATATE 100 MG CAPSULE. PO SCH ×2 (13:46→22:12)
--- NOTE | 2019-04-05 14:31 | NUR ---
Pt transferred to room 670 with all belongings. Transported to room 670 per w/c at 1415,report was called to receiving nurse Dylan.
[2019-04-05] MEDS: IPRATRPIUM/ALBUTEROL 0.5/2.5MG 3 ML NEBU. NEB SCH ×2 (15:22→18:09)
[2019-04-05] MEDS: ENOXAPARIN 40 MG/0.4 ML SYRINGE. SQ SCH (16:44)
[2019-04-05] MEDS: CARVEDILOL 12.5 MG TABLET. PO SCH (16:47)
[2019-04-05] MEDS: ATORVASTATIN CALCIUM 20 MG TABLET PO SCH (22:12)
[2019-04-06 03:29] VITALS: BP 125/87
[2019-04-06 04:31] LABS: BASO % 0 % (0-3); EOS % 0 % (0-3); HEMATOCRIT 45.1 % (39.0-53.0); HEMOGLOBIN 14.6 g/dL (13.0-17.5); LYMPH # 0.8 x10^3/uL (1.0-4.8); LYMPH % 6 % (24-48); MEAN CORPUSCULAR HEMOGLOBIN 30 pg (25-35); MEAN CORPUSCULAR HGB CONC 33 g/dL (31-37); MEAN CORPUSCULAR VOLUME 93 fL (79-100); MONO # 0.5 x10^3/uL (0.0-1.1); MONO % 3 % (0-9); NEUT # 13.1 x10^3uL (1.8-7.7); NEUT % 91 % (31-73); PLATELET COUNT 273 x10^3/uL (140-400); RED BLOOD COUNT 4.84 x10^6/uL (4.30-5.70); RED CELL DISTRIBUTION WIDTH 14.2 % (11.5-14.5); WHITE BLOOD COUNT 14.4 x10^3/uL (4.0-11.0)
[2019-04-06 05:20] LABS: CALCIUM 9.4 mg/dL (8.5-10.1); CREATININE 1.5 mg/dL (0.7-1.3); GFR 57.6
[2019-04-06] MEDS: methylPREDNISolone SOD SUCC PF 125 MG/2 ML VIAL. IV SCH ×3 (06:00→21:57)
[2019-04-06 07:00] VITALS: BP 139/97
[2019-04-06] MEDS: PANTOPRAZOLE 40 MG TABLET.DR. PO SCH (07:30)
[2019-04-06 07:31] LABS: % LYMPHS 5 % (24-48); % SEGS 95 % (35-66); PLT ESTIMATE ADEQUATE (ADEQUATE)
[2019-04-06] MEDS: IPRATRPIUM/ALBUTEROL 0.5/2.5MG 3 ML NEBU. NEB SCH ×4 (08:11→20:00)
[2019-04-06] MEDS: BUDESONIDE 0.5 MG/2 ML NEBU. NEB SCH ×2 (08:12→20:00)
[2019-04-06] MEDS ORDERED: NON FORMULARY ITEM (Vortioxetine Hydrobromide (Trintellix) 10 MG) PO SCH (09:00)
--- NOTE | 2019-04-06 09:21 | RAD ---
AP portable chest radiograph 04/06/2019 Clinical History: Shortness of breath. An AP erect portable digital radiograph of the chest was obtained. Comparison study is dated 04/04/2019. The cardiac silhouette is normal in size. The thoracic aorta is mildly tortuous. No acute pulmonary infiltrate is seen. No pleural effusion or pneumothorax is noted. The osseous structures are unchanged. Impression: No acute pulmonary infiltrate is seen. Electronically signed by: Eloy Kerns MD (04/06/2019 9:18 AM) [facility]
[2019-04-06] MEDS: CARVEDILOL 12.5 MG TABLET. PO SCH ×2 (09:50→17:32)
[2019-04-06] MEDS: DOXYCYCLINE HYCLATE 100 MG in IV DEXTROSE 5% 100ML 100 ML IV SCH ×2 (09:51→21:49)
[2019-04-06] MEDS: hydroCHLOROthiazide 25 MG TABLET PO SCH (09:52)
[2019-04-06] MEDS: NAPROXEN 500 MG TABLET PO SCH ×2 (09:52→21:55)
[2019-04-06] MEDS: AMITRIPTYLINE HCL 25 MG TABLET. PO SCH ×2 (09:52→21:49)
[2019-04-06] MEDS: LOSARTAN POTASSIUM 50 MG TABLET. PO SCH (09:53)
[2019-04-06] MEDS: LACTOBACILLUS RHAMNOSUS GG 1 CAPSULE. PO SCH ×2 (09:54→21:59)
[2019-04-06] MEDS: BENZONATATE 100 MG CAPSULE. PO SCH ×3 (09:55→21:57)
[2019-04-06] MEDS: amLODIPine BESYLATE 10 MG TABLET PO SCH (09:55)
--- NOTE | 2019-04-06 10:10 | NUR ---
Held medication hydrobromide (Trintellix) 10mg patient has no way of bringing it to the hospital, and currently doesn't have it on him.
[2019-04-06] MEDS ORDERED: HYDROcodone/APAP 5/325MG 1 TAB TABLET PO PRN (10:15)
[2019-04-06] MEDS ORDERED: ONDANSETRON PF 4 MG/2 ML VIAL. IV PRN (10:15)
[2019-04-06] MEDS ORDERED: MORPHINE SULFATE 2 MG/ML VIAL. IV PRN (10:15)
[2019-04-06 11:00] VITALS: BP 143/89
--- NOTE | 2019-04-06 11:06 | PDOC ---
PROGRESS NOTES Chief Complaint Chief Complaint Acute hypoxemic respiratory failure needing NIPPV (first time) Acute exacerbation of chronic obstructive pulmonary disease Abnormal CT chest revealing ground glass opacities and reactive lymphadenopathy Possible Gram-negative pneumonia Tobacco abuse disorder History of Present Illness History of Present Illness He was a transfer out of ICU 04/05/19 He needed the BiPAP for the first time this admission He is cutting back on smoking maybe 1 or 2 cigarettes a day now GNR PNA Still coughing after short sentences Walks around his room only and is in respiratory distress already Plan: 6 minute walk, BiPAP when necessary I don't think he needs rehabilitation, muscular strength is not the issue but he does get really tired fatigued and winded and SOA upon short distances Most likely will need O2 on dc Full code Smoking cessation done 1-1 less than 30 minutes Continue cardiac telemetry Robitussin when necessary Vitals Vitals Vital Signs Date Time Temp Pulse Resp B/P (MAP) Pulse Ox O2 Delivery O2 Flow Rate FiO2 04/06/19 09:55 83 139/97 04/06/19 08:13 95 Nasal Cannula 3.0 04/06/19 07:00 98.0 14 98.0 Physical Exam General: Cooperative, moderate distress Lungs: Wheezing, Crackles Abdomen: Normal bowel sounds, Soft Extremities: No cyanosis Skin: No rashes, No significant lesion Labs LABS Laboratory Tests Test 04/06/19 04:05 White Blood Count 14.4 x10^3/uL (4.0-11.0) Red Blood Count 4.84 x10^6/uL (4.30-5.70) Hemoglobin 14.6 g/dL (13.0-17.5) Hematocrit 45.1 % (39.0-53.0) Mean Corpuscular Volume 93 fL (79-100) Mean Corpuscular Hemoglobin 30 pg (25-35) Mean Corpuscular Hemoglobin Concent 33 g/dL (31-37) Red Cell Distribution Width 14.2 % (11.5-14.5) Platelet Count 273 x10^3/uL (140-400) Neutrophils (%) (Auto) 91 % (31-73) Lymphocytes (%) (Auto) 6 % (24-48) Monocytes (%) (Auto) 3 % (0-9) Eosinophils (%) (Auto) 0 % (0-3) Basophils (%) (Auto) 0 % (0-3) Neutrophils # (Auto) 13.1 x10^3uL (1.8-7.7) Lymphocytes # (Auto) 0.8 x10^3/uL (1.0-4.8) Monocytes # (Auto) 0.5 x10^3/uL (0.0-1.1) Eosinophils # (Auto) 0.0 x10^3/uL (0.0-0.7) Basophils # (Auto) 0.0 x10^3/uL (0.0-0.2) Segmented Neutrophils % 95 % (35-66) Lymphocytes % 5 % (24-48) Platelet Estimate Adequate (ADEQUATE) Sodium Level 136 mmol/L (136-145) Potassium Level 4.0 mmol/L (3.5-5.1) Chloride Level 99 mmol/L (98-107) Carbon Dioxide Level 26 mmol/L (21-32) Anion Gap 11 (6-14) Blood Urea Nitrogen 29 mg/dL (8-26) Creatinine 1.5 mg/dL (0.7-1.3) Estimated GFR (Cockcroft-Gault) 57.6 Glucose Level 170 mg/dL (70-99) Calcium Level 9.4 mg/dL (8.5-10.1) Review of Systems Review of Systems SOA, cough, easily tired fatigue after short distances Assessment and Plan Assessmemt and Plan Problems Medical Problems: (1) Respiratory failure Status: Acute (2) Wheezing Status: Acute Comment Review of Relevant I have reviewed the following items mine (where applicable) has been applied. Labs Laboratory Tests Test 04/04/19 11:07 04/04/19 11:50 04/04/19 15:00 04/05/19 04:30 O2 Saturation 98 % (92-99) Arterial Blood pH 7.34 (7.35-7.45) Arterial Blood pCO2 at Patient Temp 50 mmHg (35-46) Arterial Blood pO2 at Patient Temp 218 mmHg (65-108) Arterial Blood HCO3 26 mmol/L (21-28) Arterial Blood Base Excess -1 mmol/L (-3-3) Oxyhemoglobin 97.8 % Methemoglobin 0.1 % (0.0-1.9) Carbon Monoxide, Quantitative 0.4 % (0.0-1.9) FiO2 50 Sodium Level 133 mmol/L (136-145) 134 mmol/L (136-145) Potassium Level 4.4 mmol/L (3.5-5.1) 3.8 mmol/L (3.5-5.1) Chloride Level 92 mmol/L (98-107) 95 mmol/L (98-107) Carbon Dioxide Level 30 mmol/L (21-32) 26 mmol/L (21-32) Anion Gap 11 (6-14) 13 (6-14) Blood Urea Nitrogen 18 mg/dL (8-26) 30 mg/dL (8-26) Creatinine 1.5 mg/dL (0.7-1.3) 1.7 mg/dL (0.7-1.3) Estimated GFR (Cockcroft-Gault) 57.6 49.8 Glucose Level 103 mg/dL (70-99) 127 mg/dL (70-99) Lactic Acid Level 2.2 mmol/L (0.4-2.0) 1.5 mmol/L (0.4-2.0) Calcium Level 9.8 mg/dL (8.5-10.1) 9.2 mg/dL (8.5-10.1) Total Bilirubin 0.8 mg/dL (0.2-1.0) Direct Bilirubin 0.2 mg/dL (0.0-0.2) Aspartate Amino Transf (AST/SGOT) 27 U/L (15-37) Alanine Aminotransferase (ALT/SGPT) 25 U/L (16-63) Alkaline Phosphatase 187 U/L (46-116) Troponin I Quantitative < 0.017 ng/mL (0.000-0.055) FC-Oet-B-Type Natriuretic Peptide 135 pg/mL (0-124) Total Protein 9.1 g/dL (6.4-8.2) Albumin 4.5 g/dL (3.4-5.0) Lipase 69 U/L (73-393) White Blood Count 11.1 x10^3/uL (4.0-11.0) Red Blood Count 4.90 x10^6/uL (4.30-5.70) Hemoglobin 15.1 g/dL (13.0-17.5) Hematocrit 45.7 % (39.0-53.0) Mean Corpuscular Volume 93 fL (79-100) Mean Corpuscular Hemoglobin 31 pg (25-35) Mean Corpuscular Hemoglobin Concent 33 g/dL (31-37) Red Cell Distribution Width 13.8 % (11.5-14.5) Platelet Count 275 x10^3/uL (140-400) Neutrophils (%) (Auto) 77 % (31-73) Lymphocytes (%) (Auto) 12 % (24-48) Monocytes (%) (Auto) 11 % (0-9) Eosinophils (%) (Auto) 0 % (0-3) Basophils (%) (Auto) 0 % (0-3) Neutrophils # (Auto) 8.6 x10^3uL (1.8-7.7) Lymphocytes # (Auto) 1.3 x10^3/uL (1.0-4.8) Monocytes # (Auto) 1.2 x10^3/uL (0.0-1.1) Eosinophils # (Auto) 0.0 x10^3/uL (0.0-0.7) Basophils # (Auto) 0.0 x10^3/uL (0.0-0.2) Procalcitonin < 0.10 ng/mL (0.00-0.10) Test 04/06/19 04:05 White Blood Count 14.4 x10^3/uL (4.0-11.0) Red Blood Count 4.84 x10^6/uL (4.30-5.70) Hemoglobin 14.6 g/dL (13.0-17.5) Hematocrit 45.1 % (39.0-53.0) Mean Corpuscular Volume 93 fL (79-100) Mean Corpuscular Hemoglobin 30 pg (25-35) Mean Corpuscular Hemoglobin Concent 33 g/dL (31-37) Red Cell Distribution Width 14.2 % (11.5-14.5) Platelet Count 273 x10^3/uL (140-400) Neutrophils (%) (Auto) 91 % (31-73) Lymphocytes (%) (Auto) 6 % (24-48) Monocytes (%) (Auto) 3 % (0-9) Eosinophils (%) (Auto) 0 % (0-3) Basophils (%) (Auto) 0 % (0-3) Neutrophils # (Auto) 13.1 x10^3uL (1.8-7.7) Lymphocytes # (Auto) 0.8 x10^3/uL (1.0-4.8) Monocytes # (Auto) 0.5 x10^3/uL (0.0-1.1) Eosinophils # (Auto) 0.0 x10^3/uL (0.0-0.7) Basophils # (Auto) 0.0 x10^3/uL (0.0-0.2) Segmented Neutrophils % 95 % (35-66) Lymphocytes % 5 % (24-48) Platelet Estimate Adequate (ADEQUATE) Sodium Level 136 mmol/L (136-145) Potassium Level 4.0 mmol/L (3.5-5.1) Chloride Level 99 mmol/L (98-107) Carbon Dioxide Level 26 mmol/L (21-32) Anion Gap 11 (6-14) Blood Urea Nitrogen 29 mg/dL (8-26) Creatinine 1.5 mg/dL (0.7-1.3) Estimated GFR (Cockcroft-Gault) 57.6 Glucose Level 170 mg/dL (70-99) Calcium Level 9.4 mg/dL (8.5-10.1) Laboratory Tests Test 04/06/19 04:05 White Blood Count 14.4 x10^3/uL (4.0-11.0) Red Blood Count 4.84 x10^6/uL (4.30-5.70) Hemoglobin 14.6 g/dL (13.0-17.5) Hematocrit 45.1 % (39.0-53.0) Mean Corpuscular Volume 93 fL (79-100) Mean Corpuscular Hemoglobin 30 pg (25-35) Mean Corpuscular Hemoglobin Concent 33 g/dL (31-37) Red Cell Distribution Width 14.2 % (11.5-14.5) Platelet Count 273 x10^3/uL (140-400) Neutrophils (%) (Auto) 91 % (31-73) Lymphocytes (%) (Auto) 6 % (24-48) Monocytes (%) (Auto) 3 % (0-9) Eosinophils (%) (Auto) 0 % (0-3) Basophils (%) (Auto) 0 % (0-3) Neutrophils # (Auto) 13.1 x10^3uL (1.8-7.7) Lymphocytes # (Auto) 0.8 x10^3/uL (1.0-4.8) Monocytes # (Auto) 0.5 x10^3/uL (0.0-1.1) Eosinophils # (Auto) 0.0 x10^3/uL (0.0-0.7) Basophils # (Auto) 0.0 x10^3/uL (0.0-0.2) Segmented Neutrophils % 95 % (35-66) Lymphocytes % 5 % (24-48) Platelet Estimate Adequate (ADEQUATE) Sodium Level 136 mmol/L (136-145) Potassium Level 4.0 mmol/L (3.5-5.1) Chloride Level 99 mmol/L (98-107) Carbon Dioxide Level 26 mmol/L (21-32) Anion Gap 11 (6-14) Blood Urea Nitrogen 29 mg/dL (8-26) Creatinine 1.5 mg/dL (0.7-1.3) Estimated GFR (Cockcroft-Gault) 57.6 Glucose Level 170 mg/dL (70-99) Calcium Level 9.4 mg/dL (8.5-10.1) Medications Current Medications Albuterol/ Ipratropium (Duoneb) 3 ml 1X ONCE NEB Last administered on 04/04/19at 11:39; Start 04/04/19 at 11:15; Stop 04/04/19 at 11:19; Status DC Methylprednisolone Sodium Succinate (SOLU-Medrol 125MG VIAL) 125 mg 1X ONCE IV Last administered on 04/04/19at 11:20; Start 04/04/19 at 11:15; Stop 04/04/19 at 11:19; Status DC Albuterol Sulfate (Ventolin Neb Soln) 10 mg 1X ONCE CONT NEB Last administered on 04/04/19at 12:05; Start 04/04/19 at 12:00; Stop 04/04/19 at 12:01; Status DC Ondansetron HCl (Zofran) 4 mg PRN Q8HRS PRN IV NAUSEA/VOMITING; Start 04/04/19 at 13:15; Stop 04/05/19 at 13:14; Status DC Morphine Sulfate (Morphine Sulfate) 2 mg PRN Q2HR PRN IV PAIN Last administered on 04/05/19at 11:20; Start 04/04/19 at 13:15; Stop 04/05/19 at 13:14; Status DC Sodium Chloride 1,000 ml @ 100 mls/hr Q10H IV Last administered on 04/04/19 13:09; Start 04/04/19 at 13:09; Stop 04/04/19 at 19:08; Status DC Iohexol (Omnipaque 350 Mg/ml) 90 ml 1X ONCE IV Last administered on 04/04/19at 13:59; Start 04/04/19 at 13:30; Stop 04/04/19 at 13:31; Status DC Info (CONTRAST GIVEN -- Rx MONITORING) 1 each PRN DAILY PRN MC SEE COMMENTS; Start 04/04/19 at 13:30; Stop 04/06/19 at 13:29 Methylprednisolone Sodium Succinate (SOLU-Medrol 125MG VIAL) 125 mg Q8HRS IV Last administered on 04/06/19 06:00; Start 04/04/19 at 22:00 Doxycycline Hyclate 100 mg/ Dextrose 100 ml @ 50 mls/hr Q12HR IV Last administered on 04/06/19 09:51; Start 04/04/19 at 21:00 Pantoprazole Sodium (Protonix) 40 mg DAILYAC PO Last administered on 04/06/19 07:30; Start 04/05/19 at 07:30 Budesonide (Pulmicort) 0.5 mg RTBID NEB Last administered on 04/06/19 08:12; Start 04/04/19 at 20:00 Guaifenesin (MUCINEX ER with DM) 1 tab PRN BID PRN PO COUGH Last administered o n 04/05/19 18:58; Start 04/04/19 at 20:45 Lactobacillus Rhamnosus (Culturelle) 1 cap BID PO Last administered on 04/06/19 09:54; Start 04/05/19 at 09:00 Amitriptyline HCl (Elavil) 50 mg BID PO Last administered on 04/06/19 09:52; Start 04/05/19 at 12:00 Amlodipine Besylate (Norvasc) 10 mg DAILY PO Last administered on 04/06/19 09:55; Start 04/05/19 at 12:00 Atorvastatin Calcium (Lipitor) 20 mg HS PO Last administered on 5/11/19at 22:12; Start 04/05/19 at 21:00 Carvedilol (Coreg) 12.5 mg BIDWMEALS PO Last administered on 04/06/19at 09:50; Start 04/05/19 at 17:00 Losartan Potassium (Cozaar) 100 mg DAILY PO Last administered on 04/06/19 09:53; Start 04/05/19 at 12:00 Naproxen (Naprosyn) 500 mg BID PO Last administered on 04/06/19 09:52; Start 04/05/19 at 12:00 Budesonide (Pulmicort) 0.5 mg RTBID NEB ; Start 04/05/19 at 12:00; Status UNV Non-Formulary Medication (Vortioxetine Hydrobromide (Trintellix)) 10 mg DAILY PO ; Start 04/06/19 at 09:00; Status UNV Albuterol Sulfate (Ventolin Neb Soln) 2.5 mg RTQID NEB Last administered on 04/05/19at 11:40; Start 04/05/19 at 12:00; Stop 04/05/19 at 12:00; Status DC Hydrochlorothiazide (Hydrodiuril) 25 mg DAILY PO Last administered on 04/06/19 09:52; Start 04/05/19 at 12:00 Albuterol Sulfate (Ventolin Neb Soln) 2.5 mg PRN Q2HR PRN NEB DYSPNEA; Start 04/05/19 at 11:45 Albuterol/ Ipratropium (Duoneb) 3 ml RTQID NEB Last administered on 04/06/19at 08:11; Start 04/05/19 at 12:00 Benzonatate (Tessalon Perle) 100 mg [id number] PO Last administered on 04/06/19 09:55; Start 04/05/19 at 14:00 Enoxaparin Sodium (Lovenox 40mg Syringe) 40 mg Q24H SQ Last administered on 04/05/19at 16:44; Start 04/05/19 at 16:00 Morphine Sulfate (Morphine Sulfate) 2 mg PRN Q2HR PRN IV PAIN; Start 04/06/19 at 10:15 Ondansetron HCl (Zofran) 4 mg PRN Q6HRS PRN IV NAUSEA/VOMITING; Start 04/06/19 at 10:15 Acetaminophen/ Hydrocodone Bitart (Lortab 5/325) 1 tab PRN Q4HRS PRN PO PAIN; Start 04/06/19 at 10:15 Active Scripts Active Reported Carvedilol 25 Mg Tablet 12.5 Mg PO BIDWMEALS Losartan-Hctz 100-25 Mg Tab (Losartan/Hydrochlorothiazide) 1 Each Tablet 1 Tab PO DAILY Amlodipine Besylate 10 Mg Tablet 10 Mg PO DAILY Atorvastatin Calcium 20 Mg Tablet 20 Mg PO HS Anoro Ellipta 62.5-25 Mcg Inh (Umeclidinium Brm/Vilanterol Tr) 1 Each Disk.w.dev 1 Each IH DAILY Naprosyn (Naproxen) 500 Mg Tablet 500 Mg PO BID Amitriptyline Hcl 50 Mg Tablet 50 Mg PO BID Trintellix (Vortioxetine) 10 Mg Tablet 10 Mg PO DAILY Vitals/I & O Vital Sign - Last 24 Hours 04/05/19 04/05/19 04/05/19 04/05/19 11:20 11:41 11:50 12:08 Pulse 105 Resp 20 20 B/P (MAP) 150/94 Pulse Ox 95 93 93 O2 Delivery Nasal Cannula Nasal Cannula Nasal Cannula O2 Flow Rate 3.0 2.0 2.0 04/05/19 04/05/19 04/05/19 04/05/19 12:11 12:23 15:00 15:22 Temp 98.2 98.2 Pulse 105 106 112 Resp 20 20 B/P (MAP) 150/94 122/86 (98) 143/92 (109) Pulse Ox 98 96 98 O2 Delivery Nasal Cannula Nasal Cannula Nasal Cannula O2 Flow Rate 3.0 3.0 3.0 04/05/19 04/05/19 04/05/19 04/05/19 16:47 18:11 18:13 19:42 Temp 98.1 98.1 Pulse 112 107 Resp 18 B/P (MAP) 143/92 133/84 (100) Pulse Ox 96 O2 Delivery Room Air Room Air Nasal Cannula O2 Flow Rate 3.0 04/05/19 04/06/19 04/06/19 04/06/19 23:35 03:29 07:00 08:13 Temp 98.0 97.7 98.0 98.0 97.7 98.0 Pulse 101 89 83 Resp 18 16 14 B/P (MAP) 120/84 (96) 125/87 (100) 139/97 (111) Pulse Ox 93 96 96 95 O2 Delivery Nasal Cannula Nasal Cannula Nasal Cannula Nasal Cannula O2 Flow Rate 3.0 3.0 3.0 3.0 04/06/19 04/06/19 04/06/19 09:50 09:53 09:55 Pulse 83 83 83 B/P (MAP) 139/97 139/97 139/97 Intake and Output 04/05/19 04/05/19 04/06/19 15:00 23:00 07:00 Intake Total 360 ml 400 ml Output Total 550 ml 800 ml Balance -190 ml -400 ml BONY ANTUNEZ MD April 06, 2019 11:06
[2019-04-06] MEDS: guaiFENesin DM 200MG/20MG 10 ML SYRUP PO SCH ×3 (12:00→21:49)
[2019-04-06] MEDS: guaiFENesin DM 600/30MG 1 TAB TAB.ER.12H PO PRN (14:07)
--- NOTE | 2019-04-06 14:57 | PDOC ---
PULMONARY PROGRESS NOTES Subjective PT LESS SOA AND LESS COUGH OFF BIPAP Vitals Vital Signs Date Time Temp Pulse Resp B/P (MAP) Pulse Ox O2 Delivery O2 Flow Rate FiO2 04/06/19 11:38 95 Nasal Cannula 3.0 04/06/19 11:00 97.5 104 16 143/89 (107) 97.5 ROS: No Nausea, No Chest Pain, No Abdominal Pain, No Increase Cough General: Alert Lungs: Wheezing, Crackles Cardiovascular: S1, S2 Abdomen: Soft Neuro Exam: Alert Extremities: No Edema Skin: Warm Labs Laboratory Tests Test 04/04/19 15:00 04/05/19 04:30 04/06/19 04:05 Lactic Acid Level 1.5 mmol/L (0.4-2.0) White Blood Count 11.1 x10^3/uL (4.0-11.0) 14.4 x10^3/uL (4.0-11.0) Red Blood Count 4.90 x10^6/uL (4.30-5.70) 4.84 x10^6/uL (4.30-5.70) Hemoglobin 15.1 g/dL (13.0-17.5) 14.6 g/dL (13.0-17.5) Hematocrit 45.7 % (39.0-53.0) 45.1 % (39.0-53.0) Mean Corpuscular Volume 93 fL (79-100) 93 fL (79-100) Mean Corpuscular Hemoglobin 31 pg (25-35) 30 pg (25-35) Mean Corpuscular Hemoglobin Concent 33 g/dL (31-37) 33 g/dL (31-37) Red Cell Distribution Width 13.8 % (11.5-14.5) 14.2 % (11.5-14.5) Platelet Count 275 x10^3/uL (140-400) 273 x10^3/uL (140-400) Neutrophils (%) (Auto) 77 % (31-73) 91 % (31-73) Lymphocytes (%) (Auto) 12 % (24-48) 6 % (24-48) Monocytes (%) (Auto) 11 % (0-9) 3 % (0-9) Eosinophils (%) (Auto) 0 % (0-3) 0 % (0-3) Basophils (%) (Auto) 0 % (0-3) 0 % (0-3) Neutrophils # (Auto) 8.6 x10^3uL (1.8-7.7) 13.1 x10^3uL (1.8-7.7) Lymphocytes # (Auto) 1.3 x10^3/uL (1.0-4.8) 0.8 x10^3/uL (1.0-4.8) Monocytes # (Auto) 1.2 x10^3/uL (0.0-1.1) 0.5 x10^3/uL (0.0-1.1) Eosinophils # (Auto) 0.0 x10^3/uL (0.0-0.7) 0.0 x10^3/uL (0.0-0.7) Basophils # (Auto) 0.0 x10^3/uL (0.0-0.2) 0.0 x10^3/uL (0.0-0.2) Sodium Level 134 mmol/L (136-145) 136 mmol/L (136-145) Potassium Level 3.8 mmol/L (3.5-5.1) 4.0 mmol/L (3.5-5.1) Chloride Level 95 mmol/L (98-107) 99 mmol/L (98-107) Carbon Dioxide Level 26 mmol/L (21-32) 26 mmol/L (21-32) Anion Gap 13 (6-14) 11 (6-14) Blood Urea Nitrogen 30 mg/dL (8-26) 29 mg/dL (8-26) Creatinine 1.7 mg/dL (0.7-1.3) 1.5 mg/dL (0.7-1.3) Estimated GFR (Cockcroft-Gault) 49.8 57.6 Glucose Level 127 mg/dL (70-99) 170 mg/dL (70-99) Calcium Level 9.2 mg/dL (8.5-10.1) 9.4 mg/dL (8.5-10.1) Procalcitonin < 0.10 ng/mL (0.00-0.10) Segmented Neutrophils % 95 % (35-66) Lymphocytes % 5 % (24-48) Platelet Estimate Adequate (ADEQUATE) Laboratory Tests Test 04/06/19 04:05 White Blood Count 14.4 x10^3/uL (4.0-11.0) Red Blood Count 4.84 x10^6/uL (4.30-5.70) Hemoglobin 14.6 g/dL (13.0-17.5) Hematocrit 45.1 % (39.0-53.0) Mean Corpuscular Volume 93 fL (79-100) Mean Corpuscular Hemoglobin 30 pg (25-35) Mean Corpuscular Hemoglobin Concent 33 g/dL (31-37) Red Cell Distribution Width 14.2 % (11.5-14.5) Platelet Count 273 x10^3/uL (140-400) Neutrophils (%) (Auto) 91 % (31-73) Lymphocytes (%) (Auto) 6 % (24-48) Monocytes (%) (Auto) 3 % (0-9) Eosinophils (%) (Auto) 0 % (0-3) Basophils (%) (Auto) 0 % (0-3) Neutrophils # (Auto) 13.1 x10^3uL (1.8-7.7) Lymphocytes # (Auto) 0.8 x10^3/uL (1.0-4.8) Monocytes # (Auto) 0.5 x10^3/uL (0.0-1.1) Eosinophils # (Auto) 0.0 x10^3/uL (0.0-0.7) Basophils # (Auto) 0.0 x10^3/uL (0.0-0.2) Segmented Neutrophils % 95 % (35-66) Lymphocytes % 5 % (24-48) Platelet Estimate Adequate (ADEQUATE) Sodium Level 136 mmol/L (136-145) Potassium Level 4.0 mmol/L (3.5-5.1) Chloride Level 99 mmol/L (98-107) Carbon Dioxide Level 26 mmol/L (21-32) Anion Gap 11 (6-14) Blood Urea Nitrogen 29 mg/dL (8-26) Creatinine 1.5 mg/dL (0.7-1.3) Estimated GFR (Cockcroft-Gault) 57.6 Glucose Level 170 mg/dL (70-99) Calcium Level 9.4 mg/dL (8.5-10.1) Medications Active Scripts Medications Dose Route/Sig Max Daily Dose Days Date Category Amlodipine Besylate 10 Mg Tablet 10 Mg PO DAILY 04/04/19 Reported Atorvastatin Calcium 20 Mg Tablet 20 Mg PO HS 04/04/19 Reported Anoro Ellipta 62.5-25 Mcg Inh (Umeclidinium Brm/Vilanterol Tr) 1 Each Disk.w.dev 1 Each IH DAILY 04/04/19 Reported Naprosyn (Naproxen) 500 Mg Tablet 500 Mg PO BID 04/04/19 Reported Amitriptyline Hcl 50 Mg Tablet 50 Mg PO DAILY 04/04/19 Reported Trintellix (Vortioxetine) 10 Mg Tablet 10 Mg PO DAILY 04/04/19 Reported Impression . IMPRESSION: 1. Acute hypoxemic respiratory failure. 2. Acute exacerbation of chronic obstructive pulmonary disease. 3. Abnormal CT chest revealing ground glass opacities and reactive lymphadenopathy. 4. Possible Gram-negative pneumonia. 5. Tobacco dependence. 6. History of irregular heartbeat. 7. AECOPD 8. ADENOPATHY Plan . IF CONTINUES TO IMPRVE D/C 04/07 FOLLOW UP IN OFFICE TAPER PRED AND DOXY 6 MIN W REPEAT CT IN 2-3 MONTHS ADD TESSALON NEBS PRN BIPAP DOXY D/C SMOKING KELSEY CARRILLO MD April 06, 2019 14:57
[2019-04-06 15:00] VITALS: BP 143/88
[2019-04-06] MEDS: ENOXAPARIN 40 MG/0.4 ML SYRINGE. SQ SCH (17:31)
[2019-04-06 19:33] VITALS: BP 127/89
[2019-04-06] MEDS: ATORVASTATIN CALCIUM 20 MG TABLET PO SCH (21:56)
[2019-04-06 23:23] VITALS: BP 132/90
[2019-04-06 23:23] LABS: BILIRUBIN,URINE NEGATIVE (NEG); CLARITY,URINE CLEAR; COLOR,URINE YELLOW; NITRITE,URINE NEGATIVE (NEG); PROTEIN,URINE NEGATIVE (NEG-TRACE); UROBILINOGEN,URINE 0.2 mg/dL (0.2 mg/dL)
[2019-04-06 23:31] LABS: BACTERIA,URINE 0 /HPF (0-FEW); RBC,URINE 0 /HPF (0-2); SQUAMOUS EPITHELIAL CELL,UR MOD /LPF; WBC,URINE OCC /HPF (0-4)
[2019-04-07 03:46] VITALS: BP 123/72
[2019-04-07] MEDS: methylPREDNISolone SOD SUCC PF 125 MG/2 ML VIAL. IV SCH ×3 (05:28→21:58)
[2019-04-07] MEDS: IPRATRPIUM/ALBUTEROL 0.5/2.5MG 3 ML NEBU. NEB SCH ×4 (06:16→19:30)
[2019-04-07] MEDS: BUDESONIDE 0.5 MG/2 ML NEBU. NEB SCH ×2 (06:17→19:30)
[2019-04-07 07:25] VITALS: BP 133/88
[2019-04-07] MEDS: LACTOBACILLUS RHAMNOSUS GG 1 CAPSULE. PO SCH ×2 (08:10→22:08)
[2019-04-07] MEDS: BENZONATATE 100 MG CAPSULE. PO SCH ×3 (08:10→22:07)
[2019-04-07] MEDS: hydroCHLOROthiazide 25 MG TABLET PO SCH (08:11)
[2019-04-07] MEDS: LOSARTAN POTASSIUM 50 MG TABLET. PO SCH (08:11)
[2019-04-07] MEDS: CARVEDILOL 12.5 MG TABLET. PO SCH ×2 (08:11→17:47)
[2019-04-07] MEDS: amLODIPine BESYLATE 10 MG TABLET PO SCH (08:11)
[2019-04-07] MEDS: AMITRIPTYLINE HCL 25 MG TABLET. PO SCH ×2 (08:12→22:07)
[2019-04-07] MEDS: guaiFENesin DM 200MG/20MG 10 ML SYRUP PO SCH ×4 (08:12→21:58)
[2019-04-07] MEDS: PANTOPRAZOLE 40 MG TABLET.DR. PO SCH (08:12)
[2019-04-07] MEDS: DOXYCYCLINE HYCLATE 100 MG in IV DEXTROSE 5% 100ML 100 ML IV SCH ×2 (08:13→22:08)
[2019-04-07] MEDS: NAPROXEN 500 MG TABLET PO SCH ×2 (08:22→22:07)
--- NOTE | 2019-04-07 08:40 | PDOC ---
PULMONARY PROGRESS NOTES Subjective PT LESS SOA AND LESS COUGH OFF BIPAP Vitals Vital Signs Date Time Temp Pulse Resp B/P (MAP) Pulse Ox O2 Delivery O2 Flow Rate FiO2 04/07/19 08:11 81 133/88 04/07/19 07:25 97.5 17 97 Nasal Cannula 3.0 97.5 ROS: No Nausea, No Chest Pain, No Abdominal Pain, No Increase Cough General: Alert Lungs: Wheezing, Crackles Cardiovascular: S1, S2 Abdomen: Soft Neuro Exam: Alert Extremities: No Edema Skin: Warm Labs Laboratory Tests Test 04/06/19 04:05 White Blood Count 14.4 x10^3/uL (4.0-11.0) Red Blood Count 4.84 x10^6/uL (4.30-5.70) Hemoglobin 14.6 g/dL (13.0-17.5) Hematocrit 45.1 % (39.0-53.0) Mean Corpuscular Volume 93 fL (79-100) Mean Corpuscular Hemoglobin 30 pg (25-35) Mean Corpuscular Hemoglobin Concent 33 g/dL (31-37) Red Cell Distribution Width 14.2 % (11.5-14.5) Platelet Count 273 x10^3/uL (140-400) Neutrophils (%) (Auto) 91 % (31-73) Lymphocytes (%) (Auto) 6 % (24-48) Monocytes (%) (Auto) 3 % (0-9) Eosinophils (%) (Auto) 0 % (0-3) Basophils (%) (Auto) 0 % (0-3) Neutrophils # (Auto) 13.1 x10^3uL (1.8-7.7) Lymphocytes # (Auto) 0.8 x10^3/uL (1.0-4.8) Monocytes # (Auto) 0.5 x10^3/uL (0.0-1.1) Eosinophils # (Auto) 0.0 x10^3/uL (0.0-0.7) Basophils # (Auto) 0.0 x10^3/uL (0.0-0.2) Segmented Neutrophils % 95 % (35-66) Lymphocytes % 5 % (24-48) Platelet Estimate Adequate (ADEQUATE) Sodium Level 136 mmol/L (136-145) Potassium Level 4.0 mmol/L (3.5-5.1) Chloride Level 99 mmol/L (98-107) Carbon Dioxide Level 26 mmol/L (21-32) Anion Gap 11 (6-14) Blood Urea Nitrogen 29 mg/dL (8-26) Creatinine 1.5 mg/dL (0.7-1.3) Estimated GFR (Cockcroft-Gault) 57.6 Glucose Level 170 mg/dL (70-99) Calcium Level 9.4 mg/dL (8.5-10.1) Medications Active Scripts Medications Dose Route/Sig Max Daily Dose Days Date Category Amlodipine Besylate 10 Mg Tablet 10 Mg PO DAILY 04/04/19 Reported Atorvastatin Calcium 20 Mg Tablet 20 Mg PO HS 04/04/19 Reported Anoro Ellipta 62.5-25 Mcg Inh (Umeclidinium Brm/Vilanterol Tr) 1 Each Disk.w.dev 1 Each IH DAILY 04/04/19 Reported Naprosyn (Naproxen) 500 Mg Tablet 500 Mg PO BID 04/04/19 Reported Amitriptyline Hcl 50 Mg Tablet 50 Mg PO DAILY 04/04/19 Reported Trintellix (Vortioxetine) 10 Mg Tablet 10 Mg PO DAILY 04/04/19 Reported Impression . IMPRESSION: 1. Acute hypoxemic respiratory failure. 2. Acute exacerbation of chronic obstructive pulmonary disease. 3. Abnormal CT chest revealing ground glass opacities and reactive lymphadenopathy. 4. Possible Gram-negative pneumonia. 5. Tobacco dependence. 6. History of irregular heartbeat. 7. AECOPD 8. ADENOPATHY Plan . 6 MIN WALK D/C / ? FOLLOW UP IN OFFICE TAPER PRED AND DOXY REPEAT CT IN 2-3 MONTHS ADD TESSALON NEBS PRN BIPAP DOXY D/C SMOKING KELSEY CARRILLO MD April 07, 2019 08:40
[2019-04-07 10:38] VITALS: BP 134/75
[2019-04-07] MEDS ORDERED: POLYETHYLENE GLYCOL 3350 17 GM PACKET. PO PRN (14:00)
--- NOTE | 2019-04-07 14:00 | PDOC ---
PROGRESS NOTES Chief Complaint Chief Complaint Acute hypoxemic respiratory failure Acute exacerbation of chronic obstructive pulmonary disease ground glass opacities and reactive lymphadenopathy Possible Gram-negative pneumonia Tobacco abuse disorder disabled from L4 fracture, back injury History of Present Illness History of Present Illness He was a transfer out of ICU 04/05/19 still hypoxic, feeling better and stronger has not stooled since admit will try to quit tobacco use 6 minute walk showed some hypoxia, str. OK Full code Vitals Vitals Vital Signs Date Time Temp Pulse Resp B/P (MAP) Pulse Ox O2 Delivery O2 Flow Rate FiO2 04/07/19 11:22 94 Nasal Cannula 2.0 04/07/19 10:38 97.7 93 20 134/75 (94) 97.7 Physical Exam General: Cooperative, moderate distress Lungs: Wheezing, Crackles Abdomen: Normal bowel sounds, Soft Extremities: No cyanosis Skin: No rashes, No significant lesion Review of Systems Review of Systems no stool since admit, will start softener some cough and dyspnea Assessment and Plan Assessmemt and Plan Problems Medical Problems: (1) Respiratory failure Status: Acute (2) Wheezing Status: Acute Comment Review of Relevant I have reviewed the following items mine (where applicable) has been applied. Labs Laboratory Tests Test 04/06/19 04:05 White Blood Count 14.4 x10^3/uL (4.0-11.0) Red Blood Count 4.84 x10^6/uL (4.30-5.70) Hemoglobin 14.6 g/dL (13.0-17.5) Hematocrit 45.1 % (39.0-53.0) Mean Corpuscular Volume 93 fL (79-100) Mean Corpuscular Hemoglobin 30 pg (25-35) Mean Corpuscular Hemoglobin Concent 33 g/dL (31-37) Red Cell Distribution Width 14.2 % (11.5-14.5) Platelet Count 273 x10^3/uL (140-400) Neutrophils (%) (Auto) 91 % (31-73) Lymphocytes (%) (Auto) 6 % (24-48) Monocytes (%) (Auto) 3 % (0-9) Eosinophils (%) (Auto) 0 % (0-3) Basophils (%) (Auto) 0 % (0-3) Neutrophils # (Auto) 13.1 x10^3uL (1.8-7.7) Lymphocytes # (Auto) 0.8 x10^3/uL (1.0-4.8) Monocytes # (Auto) 0.5 x10^3/uL (0.0-1.1) Eosinophils # (Auto) 0.0 x10^3/uL (0.0-0.7) Basophils # (Auto) 0.0 x10^3/uL (0.0-0.2) Segmented Neutrophils % 95 % (35-66) Lymphocytes % 5 % (24-48) Platelet Estimate Adequate (ADEQUATE) Sodium Level 136 mmol/L (136-145) Potassium Level 4.0 mmol/L (3.5-5.1) Chloride Level 99 mmol/L (98-107) Carbon Dioxide Level 26 mmol/L (21-32) Anion Gap 11 (6-14) Blood Urea Nitrogen 29 mg/dL (8-26) Creatinine 1.5 mg/dL (0.7-1.3) Estimated GFR (Cockcroft-Gault) 57.6 Glucose Level 170 mg/dL (70-99) Calcium Level 9.4 mg/dL (8.5-10.1) Medications Current Medications Albuterol/ Ipratropium (Duoneb) 3 ml 1X ONCE NEB Last administered on 04/04/19at 11:39; Start 04/04/19 at 11:15; Stop 04/04/19 at 11:19; Status DC Methylprednisolone Sodium Succinate (SOLU-Medrol 125MG VIAL) 125 mg 1X ONCE IV Last administered on 04/04/19at 11:20; Start 04/04/19 at 11:15; Stop 04/04/19 at 11:19; Status DC Albuterol Sulfate (Ventolin Neb Soln) 10 mg 1X ONCE CONT NEB Last administered on 04/04/19at 12:05; Start 04/04/19 at 12:00; Stop 04/04/19 at 12:01; Status DC Ondansetron HCl (Zofran) 4 mg PRN Q8HRS PRN IV NAUSEA/VOMITING; Start 04/04/19 at 13:15; Stop 04/05/19 at 13:14; Status DC Morphine Sulfate (Morphine Sulfate) 2 mg PRN Q2HR PRN IV PAIN Last administered on 04/05/19at 11:20; Start 04/04/19 at 13:15; Stop 04/05/19 at 13:14; Status DC Sodium Chloride 1,000 ml @ 100 mls/hr Q10H IV Last administered on 04/04/19at 13:09; Start 04/04/19 at 13:09; Stop 04/04/19 at 19:08; Status DC Iohexol (Omnipaque 350 Mg/ml) 90 ml 1X ONCE IV Last administered on 04/04/19at 13:59; Start 04/04/19 at 13:30; Stop 04/04/19 at 13:31; Status DC Info (CONTRAST GIVEN -- Rx MONITORING) 1 each PRN DAILY PRN MC SEE COMMENTS; Start 04/04/19 at 13:30; Stop 04/06/19 at 13:29; Status DC Methylprednisolone Sodium Succinate (SOLU-Medrol 125MG VIAL) 125 mg Q8HRS IV Last administered on 04/07/19 13:03; Start 04/04/19 at 22:00 Doxycycline Hyclate 100 mg/ Dextrose 100 ml @ 50 mls/hr Q12HR IV Last administered on 04/07/19 08:13; Start 04/04/19 at 21:00 Pantoprazole Sodium (Protonix) 40 mg DAILYAC PO Last administered on 04/07/19 08:12; Start 04/05/19 at 07:30 Budesonide (Pulmicort) 0.5 mg RTBID NEB Last administered on 04/07/19 06:17; Start 04/04/19 at 20:00 Guaifenesin (MUCINEX ER with DM) 1 tab PRN BID PRN PO COUGH Last administered on 04/06/19at 14:07; Start 04/04/19 at 20:45 Lactobacillus Rhamnosus (Culturelle) 1 cap BID PO Last administered on 04/07/19 08:10; Start 04/05/19 at 09:00 Amitriptyline HCl (Elavil) 50 mg BID PO Last administered on 04/07/19 08:12; Start 04/05/19 at 12:00 Amlodipine Besylate (Norvasc) 10 mg DAILY PO Last administered on 04/07/19 08:11; Start 04/05/19 at 12:00 Atorvastatin Calcium (Lipitor) 20 mg HS PO Last administered on 04/06/19at 21:56; Start 04/05/19 at 21:00 Carvedilol (Coreg) 12.5 mg BIDWMEALS PO Last administered on 04/07/19 08:11; Start 04/05/19 at 17:00 Losartan Potassium (Cozaar) 100 mg DAILY PO Last administered on 04/07/19at 08:11; Start 04/05/19 at 12:00 Naproxen (Naprosyn) 500 mg BID PO Last administered on 04/07/19 08:22; Start 04/05/19 at 12:00 Budesonide (Pulmicort) 0.5 mg RTBID NEB ; Start 04/05/19 at 12:00; Status UNV Non-Formulary Medication (Vortioxetine Hydrobromide (Trintellix)) 10 mg DAILY PO ; Start 04/06/19 at 09:00; Stop 04/07/19 at 10:10; Status DC Albuterol Sulfate (Ventolin Neb Soln) 2.5 mg RTQID NEB Last administered on 04/05/19at 11:40; Start 04/05/19 at 12:00; Stop 04/05/19 at 12:00; Status DC Hydrochlorothiazide (Hydrodiuril) 25 mg DAILY PO Last administered on 04/07/19 08:11; Start 04/05/19 at 12:00 Albuterol Sulfate (Ventolin Neb Soln) 2.5 mg PRN Q2HR PRN NEB DYSPNEA; Start 04/05/19 at 11:45 Albuterol/ Ipratropium (Duoneb) 3 ml RTQID NEB Last administered on 04/07/19 11:22; Start 04/05/19 at 12:00 Benzonatate (Tessalon Perle) 100 mg [id number] PO Last administered on 04/07/19 13:03; Start 04/05/19 at 14:00 Enoxaparin Sodium (Lovenox 40mg Syringe) 40 mg Q24H SQ Last administered on 04/06/19at 17:31; Start 04/05/19 at 16:00 Morphine Sulfate (Morphine Sulfate) 2 mg PRN Q2HR PRN IV PAIN; Start 04/06/19 at 10:15 Ondansetron HCl (Zofran) 4 mg PRN Q6HRS PRN IV NAUSEA/VOMITING; Start 04/06/19 at 10:15 Acetaminophen/ Hydrocodone Bitart (Lortab 5/325) 1 tab PRN Q4HRS PRN PO PAIN; Start 04/06/19 at 10:15 Guaifenesin (Robitussin Dm) 10 ml QID PO Last administered on 04/07/19at 13:03; Start 04/06/19 at 12:00 Active Scripts Active Reported Carvedilol 25 Mg Tablet 12.5 Mg PO BIDWMEALS Losartan-Hctz 100-25 Mg Tab (Losartan/Hydrochlorothiazide) 1 Each Tablet 1 Tab PO DAILY Amlodipine Besylate 10 Mg Tablet 10 Mg PO DAILY Atorvastatin Calcium 20 Mg Tablet 20 Mg PO HS Anoro Ellipta 62.5-25 Mcg Inh (Umeclidinium Brm/Vilanterol Tr) 1 Each Disk.w.dev 1 Each IH DAILY Naprosyn (Naproxen) 500 Mg Tablet 500 Mg PO BID Amitriptyline Hcl 50 Mg Tablet 50 Mg PO BID Trintellix (Vortioxetine) 10 Mg Tablet 10 Mg PO DAILY Vitals/I & O Vital Sign - Last 24 Hours 04/06/19 04/06/19 04/06/19 04/06/19 15:00 16:21 17:32 19:33 Temp 97.8 97.5 97.8 97.5 Pulse 99 99 96 Resp 14 16 B/P (MAP) 143/88 (106) 143/88 127/89 (102) Pulse Ox 90 95 O2 Delivery Nasal Cannula Nasal Cannula Nasal Cannula O2 Flow Rate 3.0 2.0 3.0 04/06/19 04/06/19 04/06/19 04/07/19 20:00 20:00 23:23 03:46 Temp 97.4 97.4 97.4 97.4 Pulse 89 86 Resp 20 18 B/P (MAP) 132/90 (104) 123/72 (89) Pulse Ox 98 96 O2 Delivery Nasal Cannula Nasal Cannula Nasal Cannula Nasal Cannula O2 Flow Rate 2.0 3.0 3.0 3.0 04/07/19 04/07/19 04/07/19 04/07/19 06:17 07:25 08:00 08:11 Temp 97.5 97.5 Pulse 81 81 Resp 17 B/P (MAP) 133/88 (103) 133/88 Pulse Ox 97 97 O2 Delivery Nasal Cannula Nasal Cannula Nasal Cannula O2 Flow Rate 2.0 3.0 3.0 04/07/19 04/07/19 04/07/19 04/07/19 08:11 08:11 10:38 11:22 Temp 97.7 97.7 Pulse 81 81 93 Resp 20 B/P (MAP) 133/88 133/88 134/75 (94) Pulse Ox 96 94 O2 Delivery Nasal Cannula Nasal Cannula O2 Flow Rate 3.0 2.0 Intake and Output 04/06/19 04/06/19 04/07/19 14:59 22:59 06:59 Intake Total 360 ml Output Total 375 ml 1800 ml Balance -375 ml -1440 ml JORDAN ALLISON MD April 07, 2019 14:00
[2019-04-07] MEDS: DOCUSATE SODIUM 100 MG CAPSULE. PO SCH (14:41)
[2019-04-07 14:54] VITALS: BP 141/83
--- NOTE | 2019-04-07 15:25 | NUR ---
SW following pt for anticipated dc needs. Chart reviewed. Pt lives at home alone and has passed 6 min walk. Pt also does have Medicare and Medicaid. No SW needs noted at this time. ANKIT RN.
[2019-04-07] MEDS: ENOXAPARIN 40 MG/0.4 ML SYRINGE. SQ SCH (17:47)
--- NOTE | 2019-04-07 18:34 | NUR ---
report received from JAVIER Gillespie. pt transferred to room 532
[2019-04-07 19:00] VITALS: BP 121/94
[2019-04-07] MEDS: ATORVASTATIN CALCIUM 20 MG TABLET PO SCH (22:07)
[2019-04-07 23:00] VITALS: BP 134/99
[2019-04-08 02:52] VITALS: BP 136/89
[2019-04-08] MEDS: methylPREDNISolone SOD SUCC PF 125 MG/2 ML VIAL. IV SCH (06:06)
[2019-04-08 07:00] VITALS: BP 134/99
[2019-04-08] MEDS: BUDESONIDE 0.5 MG/2 ML NEBU. NEB SCH (08:00)
[2019-04-08] MEDS: IPRATRPIUM/ALBUTEROL 0.5/2.5MG 3 ML NEBU. NEB SCH ×2 (08:48→13:02)
[2019-04-08] MEDS: NAPROXEN 500 MG TABLET PO SCH (09:38)
[2019-04-08] MEDS: AMITRIPTYLINE HCL 25 MG TABLET. PO SCH (09:38)
[2019-04-08] MEDS: CARVEDILOL 12.5 MG TABLET. PO SCH (09:39)
[2019-04-08] MEDS: amLODIPine BESYLATE 10 MG TABLET PO SCH (09:39)
[2019-04-08] MEDS: LACTOBACILLUS RHAMNOSUS GG 1 CAPSULE. PO SCH (09:39)
[2019-04-08] MEDS: LOSARTAN POTASSIUM 50 MG TABLET. PO SCH (09:40)
[2019-04-08] MEDS: hydroCHLOROthiazide 25 MG TABLET PO SCH (09:40)
[2019-04-08] MEDS: PANTOPRAZOLE 40 MG TABLET.DR. PO SCH (09:41)
[2019-04-08] MEDS: DOCUSATE SODIUM 100 MG CAPSULE. PO SCH (09:41)
[2019-04-08] MEDS: guaiFENesin DM 200MG/20MG 10 ML SYRUP PO SCH ×2 (09:42→12:44)
[2019-04-08] MEDS: BENZONATATE 100 MG CAPSULE. PO SCH (09:42)
[2019-04-08] MEDS: DOXYCYCLINE HYCLATE 100 MG in IV DEXTROSE 5% 100ML 100 ML IV SCH (10:44)
[2019-04-08 10:47] VITALS: BP 143/93
[2019-04-08] MEDS ORDERED: PRED-220 PO (11:45)
[2019-04-08] MEDS ORDERED: DOCU-109 PO (11:45)
[2019-04-08] MEDS ORDERED: DOXY100C2 PO (11:45)
[2019-04-08] MEDS ORDERED: GUAI-108 PO (11:45)
--- NOTE | 2019-04-08 11:50 | PDOC3 ---
Discharge Summary Visit Information Date of Admission: April 04, 2019 Date of Discharge: April 08, 2019 Admitting Diagnosis: hypoxia Final Diagnosis Acute hypoxemic respiratory failure Acute exacerbation of chronic obstructive pulmonary disease likely Gram-negative pneumonia Tobacco abuse disorder disabled from L4 fracture, back injury Problems Medical Problems: (1) Respiratory failure Status: Acute (2) Wheezing Status: Acute Brief Hospital Course Allergies Allergies Coded Allergies Type Severity Reaction Last Updated Verified No Known Drug Allergies 04/04/19 No Vital Signs Vital Signs Date Time Temp Pulse Resp B/P (MAP) Pulse Ox O2 Delivery O2 Flow Rate FiO2 04/08/19 10:47 98.4 104 18 143/93 (110) 93 Nasal Cannula 2.0 98.4 Brief Hospital Course Mr. Fritz is a 63 old admit to Acute hypoxemic respiratory failure and Acute exacerbation of chronic obstructive pulmonary disease admit to ICU, 24 hours, bipap ground glass opacities and reactive lymphadenopathy Possible Gram-negative pneumonia steroids, abx, PULM consult following 6 minute walk showed some hypoxia, better at DC Discharge Information Condition at Discharge: Improved Follow Up: Weeks Disposition/Orders: D/C to Home Scheduled Amitriptyline Hcl (Amitriptyline Hcl) 50 Mg Tablet, 50 MG PO BID for home med, (Reported) Entered as Reported by: MERCEDEZ NOLAN on 04/04/19 1528 Last Action: Continued on 04/05/191105 by RONAN STANTON Amlodipine Besylate (Amlodipine Besylate) 10 Mg Tablet, 10 MG PO DAILY for heart, (Reported) Entered as Reported by: MERCEDEZ NOLAN on 04/04/19 1530 Last Action: Continued on 04/05/191105 by RONAN STANTON Atorvastatin Calcium (Atorvastatin Calcium) 20 Mg Tablet, 20 MG PO HS for FOR CHOLESTEROL, #30 Ref 0 (Reported) Entered as Reported by: MERCEDEZ NOLAN on 04/04/19 1530 Last Action: Continued on 04/05/191105 by RONAN STANTON Carvedilol (Carvedilol) 25 Mg Tablet, 12.5 MG PO BIDWMEALS for CARDIAC, (Reported) Entered as Reported by: RONAN STANTON on 04/05/19 1017 Last Taken: Unknown Dose on 04/04/19 0800 Last Action: Converted on 04/05/191105 by RONAN STANTON Docusate Sodium (Colace) 100 Mg Capsule, 100 MG PO DAILY for constipation, #30 Prescribed by: JORDAN ALLISON on 04/08/19 114 Doxycycline Hyclate (Doxycycline Hyclate) 100 Mg Capsule, 1 CAP PO BID for bronchitis, #10 Prescribed by: JORDAN ALLISON on 04/08/19 1145 Losartan/Hydrochlorothiazide (Losartan-Hctz 100-25 Mg Tab) 1 Each Tablet, 1 TAB PO DAILY for htn, #30 Ref 5 (Reported) Entered as Reported by: RONAN STANTON on 04/05/19 1011 Last Taken: Unknown Dose on 04/04/19 0800 Last Action: Converted on 03/26 by RONAN STANTON Naproxen (Naprosyn) 500 Mg Tablet, 500 MG PO BID for pain, (Reported) Entered as Reported by: MERCEDEZ NOLAN on 04/04/191527 Last Action: Converted on 04/05/191105 by RONAN STANTON Prednisone (Prednisone ) 10 Mg Tablet, 10 MG PO UD for bronchitis, #20 Ref 0 Take 4 tablets by mouth daily for 2 days, then take 3 tablets by mouth daily for 2 days, then take 2 tablets by mouth daily for 2 days, then take 1 tablets by mouth daily for 2 days, then stop. Prescribed by: JORDAN ALLISON on 04/08/19 114 Umeclidinium Brm/Vilanterol Tr (Anoro Ellipta 62.5-25 Mcg Inh) 1 Each Disk.w.dev, 1 EACH IH DAILY for inhaler, (Reported) Entered as Reported by: MERCEDEZ NOLAN on 04/04/19 1530 Last Action: Converted on 04/05/191105 by RONAN STANTON Vortioxetine Hydrobromide (Trintellix) 10 Mg Tablet, 10 MG PO DAILY for home med, (Reported) Entered as Reported by: MERCEDEZ NOLAN on 04/04/191527 Last Action: Converted on 04/05/191105 by RONAN STANTON Scheduled PRN Guaifenesin/Dextromethorphan (Mucinex Dm Er 600-30 Mg Tablet) 1 Each Tab.er.12h, 1 TAB PO PRN BID PRN for COUGH, #10 Prescribed by: JORDAN ALLISON on 04/08/19 1145 Patient Instructions Patient Instructions > 30 min face to face JORDAN ALLISON MD April 08, 2019 11:50
--- NOTE | 2019-04-08 13:58 | PDOC ---
PULMONARY PROGRESS NOTES Subjective PT LESS SOA AND LESS COUGH OFF OXYGEN Vitals Vital Signs Date Time Temp Pulse Resp B/P (MAP) Pulse Ox O2 Delivery O2 Flow Rate FiO2 04/08/19 13:02 Room Air 04/08/19 10:47 98.4 104 18 143/93 (110) 93 2.0 98.4 ROS: No Nausea, No Chest Pain, No Abdominal Pain, No Increase Cough General: Alert, No acute distress Cardiovascular: S1, S2 Abdomen: Soft Neuro Exam: Alert Extremities: No Edema Skin: Warm Medications Active Scripts Medications Dose Route/Sig Max Daily Dose Days Date Category Amlodipine Besylate 10 Mg Tablet 10 Mg PO DAILY 04/04/19 Reported Atorvastatin Calcium 20 Mg Tablet 20 Mg PO HS 04/04/19 Reported Anoro Ellipta 62.5-25 Mcg Inh (Umeclidinium Brm/Vilanterol Tr) 1 Each Disk.w.dev 1 Each IH DAILY 04/04/19 Reported Naprosyn (Naproxen) 500 Mg Tablet 500 Mg PO BID 04/04/19 Reported Amitriptyline Hcl 50 Mg Tablet 50 Mg PO DAILY 04/04/19 Reported Trintellix (Vortioxetine) 10 Mg Tablet 10 Mg PO DAILY 04/04/19 Reported Impression . IMPRESSION: 1. Acute hypoxemic respiratory failure. 2. Acute exacerbation of chronic obstructive pulmonary disease. 3. Abnormal CT chest revealing ground glass opacities and reactive lymphadenopathy. 4. Possible Gram-negative pneumonia. 5. Tobacco dependence. 6. History of irregular heartbeat. 7. AECOPD 8. ADENOPATHY Plan . OK WITH DC HOME TODAY FOLLOW UP IN OFFICE WITH DR LORENA SERRANO AND [facility] IN 2-3 MONTHS CAROLYN SIMON D/C SMOKING RADHA GIBSON MD April 08, 2019 13:58
--- NOTE | 2019-04-08 14:33 | NUR ---
Discharge Note: BOOGIE JOHNSON Discharge instructions and discharge home medications reviewed with Patient and a copy given. All questions have been answered and understanding verbalized. The following instructions and handouts were given: follow-up, diet, medications, respiratory distress education provided Discontinued lines and drains: left forearm peripheral IV removed, cath intact. Patient discharged to home via cab pass
== END 2019-04-08 14:39 | disposition home or self-care (01) | DRG 177 ==
LOC: ER 10:58 → 1 WEST ICU 12:51 → 6 SOUTH 04-05 14:26 → 5 NORTH 04-07 18:33
PROVIDERS: ADMIT Family Medicine; ATTEND Family Medicine
PROC: 5A09357 Assistance with Respiratory Ventilation, Less than 24 Consecutive Hours, Continuous Positive Airway Pressure (ICD-10-PCS; principal; 2019-04-04)
DX: J15.6 Pneumonia due to other Gram-negative bacteria (principal); J96.02 Acute respiratory failure with hypercapnia; J96.01 Acute respiratory failure with hypoxia; J44.1 Chronic obstructive pulmonary disease with (acute) exacerbation; J44.0 Chronic obstructive pulmonary disease with (acute) lower respiratory infection; I10 Essential (primary) hypertension; E78.5 Hyperlipidemia, unspecified; F17.210 Nicotine dependence, cigarettes, uncomplicated; I25.10 Atherosclerotic heart disease of native coronary artery without angina pectoris; Z82.49 Family history of ischemic heart disease and other diseases of the circulatory system
CPT/HCPCS: 36415; 36600; 71045; 71275; 80048; 80076; 81001; 82805; 83605; 83690; 83880; 84145; 84484; 85007; 85025; 87086; 93005; 94618; 94640; 94644; 94660; 94760; 96360; J1650; J2270; J2930; J3490; J7030; J7613; J7620; J7626; Q9967; 99285-25

== ENCOUNTER 2021-05-24 10:03 | Emergency (ER) | payer MEDICAID, MEDICARE ==
[~2021-05-24] VITALS: Ht 185.4 cm; Wt 113.6 kg
[~2021-05-24 10:03] MED LIST: AMIT50TA PO; AMLO-187 PO; ATOR20TA58 PO; CARV25TA2 PO; DOCU-109 PO; DOXY100C2 PO; GUAI-108 PO; LOSA1TAB22 PO; NAPR-683 PO; PRED-220 PO; UMEC1DIS IH; VORT10TA PO
[2021-05-24] MEDS ORDERED: IV NORMAL SALINE 1000ML BAG 1,000 ML IV SCH (11:00)
--- NOTE | 2021-05-24 11:15 | PHYS DOC ---
Past Medical History Past Medical History: Depression, High Cholesterol, Hypertension Past Surgical History: No Surgical History Additional Past Surgical Histo: UNKNOWN Smoking Status: Current Every Day Smoker Alcohol Use: None Drug Use: None General Adult EDM: Chief Complaint: RIB PAIN HPI: HPI: 66 yo F PMH HTN, HLD and depression, presents to the ed with c/o left lower rib pain stating he was seen by his pcp and prescribed steroids, stating "I think there's fluid in there." Denies history of CHF and states symptoms do not resemble prior admission for respiratory failure. Denies any associated weight gain, lower extremity swelling or orthopnea. Reports associated productive cough and dyspnea. No known history of Covid. Review of Systems: Review of Systems: Constitutional: Denies fever or chills. [] Eyes: Denies change in visual acuity. [] HENT: Denies nasal congestion or sore throat. [] Respiratory: Denies hemoptysis or increased work of breathing Cardiovascular: Denies chest pain or edema or syncope GI: Denies nausea, vomiting, : Denies dysuria or hematuria Musculoskeletal: Denies midline back pain or flank pain Integument: Denies rash or diaphoresis Neurologic: Denies headache, focal weakness or sensory changes. [] Endocrine: Denies polyuria or polydipsia. [] Lymphatic: Denies swollen glands. [] Psychiatric: Denies depression or anxiety. [] Heart Score: C/O Chest Pain: No Risk Factors: Risk Factors: DM, Current or recent (<one month) smoker, HTN, HLP, family history of CAD, obesity. Risk Scores: Score 0 - 3: 2.5% MACE over next 6 weeks - Discharge Home Score 4 - 6: 20.3% MACE over next 6 weeks - Admit for Clinical Observation Score 7 - 10: 72.7% MACE over next 6 weeks - Early Invasive Strategies Current Medications: Current Medications Medications (Trade) Dose Ordered Sig/Zohreh Start Time Stop Time Status Last Admin Dose Admin Sodium Chloride 1,000 ml @ 1,000 mls/hr Q1H 05/24/21 11:00 05/24/21 11:59 Allergies: Allergies: Allergies Coded Allergies Type Severity Reaction Last Updated Verified No Known Drug Allergies 04/04/19 No Physical Exam: PE: Constitutional: Well developed, well nourished, no acute distress, non-toxic appearance. HENT: Normocephalic, atraumatic, Eyes: EOMI, conjunctiva normal, no discharge. Neck: Normal range of motion, supple, Cardiovascular: S1/2 present, no tachycardia Lungs & Thorax: Speaking in full sentences, bilateral equal chest rise, no tachypnea or increased work of breathing Abdomen: soft, no tenderness, Skin: Warm, dry, no erythema, no rash. [] Back: No tenderness, no CVA tenderness. [] Extremities: No tenderness, no cyanosis, no unilateral lower extremity edema Neurologic: Alert and oriented X 3, normal motor function, normal sensory function, no focal deficits noted. [] Psychologic: Affect normal, judgement normal, mood normal. [] Current Patient Data: Vital Signs: Vital Signs Date Time Temp Pulse Resp B/P (MAP) Pulse Ox O2 Delivery O2 Flow Rate FiO2 05/24/21 10:38 97.9 85 22 117/77 (90) 94 Room Air 97.9 EKG: EKG: sinus rhythm 76 bpm, NAD, no TWI, no ST elevations or ST depressions Radiology/Procedures: Radiology/Procedures: IMAGING REPORT Signed PATIENT: BOOGIE JOHNSON ACCOUNT: [id number] : 1955 LOCATION: ER AGE: 66 SEX: M EXAM STATUS: REG ER ORD. PHYSICIAN: BAO SKY DO REASON: cp, soa, r/o pe PROCEDURE: CT ANGIOGRAPHY CHEST Study: CT CHEST WITH CONTRAST - PULMONARY ANGIOGRAM History: Chest pain and shortness of air. Pulmonary embolism. Comparison: 04/04/2019 Technique: Helical CT of the chest performed after the administration of 100 cc Omnipaque 350 intravenous contrast and timed for angiographic evaluation of the pulmonary arteries per PE protocol. Coronal and sagittal 3D MIP reformations were obtained. One or more of the following individualized dose reduction techniques were utilized for this examination: 1. Automated exposure control 2. Adjustment of the mA and/or kV according to patient size 3. Use of iterative reconstruction technique. Findings: Pulmonary Arteries: Limited study for the detection of pulmonary emboli due to bolus timing. No saddle or central embolism is readily apparent. Main pulmonary artery transverse dimension is within normal limits. Heart/Systemic Vasculature: Nonaneurysmal aorta. The visualized great vessels are patent. Mediastinum: In general mediastinal and hilar lymph nodes have decreased in size from the 2019 comparison. Redemonstrated small hiatal hernia. Lungs: Trace pleural effusion on the left. Bibasilar volume loss, left more so than right. Mild groundglass opacities at the inferior left lower lobe and more faintly at the inferior aspect of the lingula. Small amount of debris within the central airways. Bronchial wall thickening and intermittent small airway opacification most notably at the left more so than right lower lobes. Neck/Axilla/Body Wall: No pathologically enlarged axillary lymph nodes. The visualized thyroid is unremarkable. Upper Abdomen: No acute abnormality. Bones: Scattered degenerative changes with discogenic arthrosis most pronounced at C7-T1. No acute or aggressive osseous process. Miscellaneous: None. IMPRESSION: 1. Incomplete study for the detection of pulmonary emboli due to bolus timing. No central embolism is apparent but the peripheral arterial tree is not well evaluated evaluated. No ancillary findings to suggest the presence of emboli such as main pulmonary artery dilatation. 2. Trace left pleural effusion. Bibasilar volume loss in addition to wall thickening and intermittent small airway opacification mainly at both lower lobes. There is trace debris within the more central airways. The findings could be related to bronchitis or potentially aspiration. Given the presence of the effusion follow-up is recommended to confirm resolution. 3. Additional chronic observations as above. Electronically signed by: NATALYA DUNN MD (05/24/2021 1:33 PM) [id number] DICTATED and SIGNED BY: NATALYA DUNN MD DATE: 05/24/21 [id number] 0 Course & Med Decision Making: Course & Med Decision Making Pertinent Labs and Imaging studies reviewed. (See chart for details) Concern for right lower anterior rib pain and productive cough, concerning for left trace pleural effusion and pleurisy, cannot exclude parapneumonic effusion. CTA of the chest with no central PE, not optimal bolus timing for peripheral PE, although patient has no unilateral leg swelling, hemoptysis or increased work of breathing. On reevaluation patient was resting comfortably, lying flat with no orthopnea. Will treat with antibiotics and Lido patch for pain. I offered admission for IV antibiotics and failed oral antibiotics-pt declined stating he felt well to return home. With normal VS/is hemodynamically stable. Will discharge home with strict ED return precautions were given for syncope, chest pain, hemoptysis, increased work of breathing, nausea or vomiting. Encouraged urgent outpatient follow-up with PMD and pulmonology. Life- threatening processes were considered but are low suspicion at this time, given history, physical exam and ED workup. Pt was educated on all prescription medications and adverse effects. All patient's questions were answered and pt was stable at time of discharge. Life/limb-threatening differential includes but is not limited to, ACS, dysrhythmia, pneumothorax or hemothorax, pulmonary embolus, pneumonia, bronchoco nstriction, pulmonary edema, angioedema, epiglottitis, tracheitis, Nitish's angina, RPA/NATIONAL ACCOUNTS RECRUITER, anaphylaxis, angioedema, cardiac tamponade or murmurs, pericarditis, myocarditis, poisoning or toxicity, sepsis or autoimmune/neurologic disease. I spoken with the patient and her caregivers. I explained the patient's condition, diagnoses and treatment plan based on the information available to me at this time. I have answered the patient and her caregiver's questions and addressed any concerns. The patient and her caregivers have a good understanding of patient's diagnosis, condition and treatment plan as can be expected at this point. Vital signs have been stable. Patient's condition is stable and appropriate for discharge from the emergency department. Patient will pursue further outpatient evaluation with primary care physician or other designated or consulting physician as outlined in the discharge instructions. The patient and/or caregivers are agreeable to this plan of care and follow-up instructions have been explained in detail. The patient and/or caregivers have received these instructions in written form and have expressed an understanding of the discharge instructions. The patient and/or caregivers are aware that any significant change of condition or worsening of symptoms should prompt immediate return to this or the closest emergency department or call to 911. Jamal Disclaimer: Jamal Disclaimer: This electronic medical record was generated, in whole or in part, using a voice recognition dictation system. Departure Departure Impression: Primary Impression: Pneumonia Additional Impression: Recurrent left pleural effusion Disposition: HOME / SELF CARE / HOMELESS Condition: STABLE Referrals: TAYLA PERSAUD JR, MD (PCP) Patient Instructions: Pleural Effusion, Pneumonia, Adult Additional Instructions: FOLLOW UP WITH PULMONOLOGY: FOR DEFINITIVE MANAGEMENT within 7 days [facility] [address] [place] [address] EMERGENCY DEPARTMENT GENERAL DISCHARGE INSTRUCTIONS Thank you for coming to [facility] Emergency Department (ED) today and trusting us with you care. We trust that you had a positive experience in our Emergency Department. If you wish to speak to the department management, you may call the Director at [phone]. YOUR FOLLOW UP INSTRUCTIONS ARE FOLLOWS: 1. Do you have a private Doctor? If you do not have a private doctor, please ask for a resource list of physicians or clinics that may be able to assist you with follow up care. 2. The Emergency Physicain has interpreted your x-rays. The X-Ray specialist will also review them. If there is a change in the findings, you will be notified in 48 hours when at all possible. 3. A lab test or culture has been done, your results will be reviewed and you will be notified if you need a change in treatment. ADDITIONAL INSTRUCTIONS AND INFORMATION: 1. Your care today has been supervised by a physician who is specially trained in emergency care. Many problems require more than one evaluation for a complete diagnosis and treatment. We recommend that you schedule your follow up appointment as recommended to ensure complete treatment of you illness or injury. If you are unable to obtain follow up care and continue to have a problem, or if your condition worsens, we recommend that you return to the ED. 2. We are not able to safely determine your condition over the phone nor are we able to give sound medical advice over the phone. For these safety reasons, if you call for medical advice we will ask you to come to the ED for further evaluation. 3. If you have any questions regarding these discharge instructions please call the ED at [phone]. SAFETY INFORMATION: In the interest of safety, wellness, and injury prevention; we encourage you to wear your sealbelt, if you smoke; quite smoking, and we encourage family to use a protective helmet for bicycling and other sporting events that present an increased risk for head injury. IF YOUR SYMPTOMS WORSEN OR NEW SYMPTOMS DEVELOP, OR YOU HAVE CONCERNS ABOUT YOUR CONDITION; OR IF YOUR CONDITION WORSENS WHILE YOU ARE WAITING FOR YOUR FOLLOW UP A PPOINTMENT; EITHER CONTACT YOUR PRIMARY CARE DOCTOR, THE PHYSICIAN WHOSE NAME AND NUMBER YOU WERE GIVEN, OR RETURN TO THE ED IMMEDIATELY. Scripts Lidocaine (Lido Nuno) 1 Each Adh..patch 1 EACH TP DAILY for 5 Days, #5 PATCH Apply 1 patch for 12 hours, remove for another 12 hours. May repeat, 1 patch per day as instructed above. Prov: BAO SKY DO 05/24/21 Azithromycin (ZITHROMAX) 250 Mg Tablet 250 MG PO as directed for ANTI-BIOTIC, #11 TAB 0 Refills Take 2 PO x 1 days Then take 1 PO q 24 hour for the next 9 days Prov: BAO SKY DO 05/24/21 Amoxicillin/Potassium Clav (AUGMENTIN 875-125 TABLET) 1 Each Tablet 1 TAB PO Q12HR for 10 Days, #20 TAB Prov: BAO SKY DO 05/24/21 BAO SKY DO May 24, 2021 11:15
--- NOTE | 2021-05-24 11:40 | EKG ---
[facility] [address] [place] [address] Test Date: 2021-05-24 Test Time: 11:09:28 Pat Name: BOOGIE JOHNSON Department: Room: Gender: M [employer] Operator: : 1955 Requested By: BAO SKY Order Number: [id number] Reading MD: Measurements Intervals [place] Rate: 76 P: 38 NC: 182 QRS: 4 QRSD: 80 T: 57 QT: 362 QTc: 411 Interpretive Statements SINUS RHYTHM NORMAL ECG RI6.02 No previous ECG available for comparison
[2021-05-24 12:00] LABS: BASO % 0 % (0-3); EOS # 0.5 x10^3/uL (0.0-0.7); EOS % 6 % (0-3); HEMATOCRIT 40.3 % (39.0-53.0); HEMOGLOBIN 13.4 g/dL (13.0-17.5); LYMPH # 2.6 x10^3/uL (1.0-4.8); LYMPH % 29 % (24-48); MEAN CORPUSCULAR HEMOGLOBIN 32 pg (25-35); MEAN CORPUSCULAR HGB CONC 33 g/dL (31-37); MEAN CORPUSCULAR VOLUME 97 fL (79-100); MONO % 12 % (0-9); NEUT # 4.7 x10^3/uL (1.8-7.7); NEUT % 53 % (31-73); PLATELET COUNT 262 x10^3/uL (140-400); RED BLOOD COUNT 4.14 x10^6/uL (4.30-5.70); WHITE BLOOD COUNT 8.9 x10^3/uL (4.0-11.0)
[2021-05-24 12:18] LABS: CALCIUM 8.9 mg/dL (8.5-10.1); CREATININE 1.3 mg/dL (0.7-1.3); GFR 67.2; POTASSIUM 3.4 mmol/L (3.5-5.1)
[2021-05-24 12:25] LABS: ALBUMIN 3.8 g/dL (3.4-5.0); ALBUMIN/GLOBULIN RATIO 1.2 (1.0-1.7); TOTAL BILIRUBIN 0.4 mg/dL (0.2-1.0); TOTAL PROTEIN 7.1 g/dL (6.4-8.2)
[2021-05-24] MEDS ORDERED: IOHEXOL 350 MG/ML 100 ML VIAL. IV ONE (12:30)
[2021-05-24] MEDS ORDERED: CONTRAST GIVEN. MC PRN (12:45)
--- NOTE | 2021-05-24 13:36 | RAD ---
Study: CT CHEST WITH CONTRAST - PULMONARY ANGIOGRAM History: Chest pain and shortness of air. Pulmonary embolism. Comparison: 04/04/2019 Technique: Helical CT of the chest performed after the administration of 100 cc Omnipaque 350 intrav enous contrast and timed for angiographic evaluation of the pulmonary arteries per PE protocol. Coron al and sagittal 3D MIP reformations were obtained. One or more of the following individualized dose reduction techniques were utilized for this examinat ion: 1. Automated exposure control 2. Adjustment of the mA and/or kV according to patient size 3. Use of iterative reconstruction technique. Findings: Pulmonary Arteries: Limited study for the detection of pulmonary emboli due to bolus timing. No saddl e or central embolism is readily apparent. Main pulmonary artery transverse dimension is within cecile l limits. Heart/Systemic Vasculature: Nonaneurysmal aorta. The visualized great vessels are patent. Mediastinum: In general mediastinal and hilar lymph nodes have decreased in size from the 2019 compar daisha. Redemonstrated small hiatal hernia. Lungs: Trace pleural effusion on the left. Bibasilar volume loss, left more so than right. Mild groun dglass opacities at the inferior left lower lobe and more faintly at the inferior aspect of the lingu la. Small amount of debris within the central airways. Bronchial wall thickening and intermittent sma ll airway opacification most notably at the left more so than right lower lobes. Neck/Axilla/Body Wall: No pathologically enlarged axillary lymph nodes. The visualized thyroid is unr emarkable. Upper Abdomen: No acute abnormality. Bones: Scattered degenerative changes with discogenic arthrosis most pronounced at C7-T1. No acute or aggressive osseous process. Miscellaneous: None. IMPRESSION: 1. Incomplete study for the detection of pulmonary emboli due to bolus timing. No central embolism i s apparent but the peripheral arterial tree is not well evaluated evaluated. No ancillary findings to suggest the presence of emboli such as main pulmonary artery dilatation. 2. Trace left pleural effusion. Bibasilar volume loss in addition to wall thickening and intermitten t small airway opacification mainly at both lower lobes. There is trace debris within the more centra l airways. The findings could be related to bronchitis or potentially aspiration. Given the presence of the effusion follow-up is recommended to confirm resolution. 3. Additional chronic observations as above. Electronically signed by: NATALYA DUNN MD (05/24/2021 1:33 PM) [id number]
[2021-05-24] MEDS ORDERED: AMOX1TAB61 PO (14:37)
[2021-05-24] MEDS ORDERED: AZIT250T PO (14:37)
[2021-05-24] MEDS ORDERED: KETOROLAC 15 MG/ML VIAL. IVP ONE (14:45)
[2021-05-24 16:30] VITALS: BP 160/92
[2021-05-24] MEDS ORDERED: LIDO1ADH78 TP (17:05)
[2021-05-24] MEDS ORDERED: LIDOCAINE (700MG/PATCH) PATCH. TD SCH (17:30)
[2021-05-25] MEDS ORDERED: PATCH REMOVAL. MC SCH (21:00)
== END 2021-05-24 17:14 | disposition home or self-care (01) ==
LOC: ER 10:03
DX: J18.9 Pneumonia, unspecified organism (principal); J90 Pleural effusion, not elsewhere classified; I10 Essential (primary) hypertension; E78.00 Pure hypercholesterolemia, unspecified; F17.200 Nicotine dependence, unspecified, uncomplicated
CPT/HCPCS: 36415; 71275; 80053; 83880; 84484; 85025; 93005; 96361; 96374; 99285; J1885; J7030; Q9967